=== PATIENT | female | born 1980 | race Caucasian/White ===

== ENCOUNTER 2020-09-19 14:47 | Outpatient (RCR) | payer BC, SELFPAY ==
[2020-09-19] MEDS: COVID-19 VACC, MRNA(PFIZER)/PF 30 MCG/0.3 ML SYRINGE IM (15:56)
[2020-10-10] MEDS: COVID-19 VACC, MRNA(PFIZER)/PF 30 MCG/0.3 ML SYRINGE IM (15:31)
== END 2020-09-19 23:59 ==
LOC: IMMUN 14:47
PROVIDERS: PCP Family Medicine; Visit Provider Family Medicine
DX: Z23 Encounter for immunization (principal)
CPT/HCPCS: 0001A; 0002A; 91300

== ENCOUNTER 2022-03-27 02:08 | Emergency (ER) | payer OTHER, SELFPAY ==
[2022-03-27 02:09] VITALS: BP 196/104; PULSE 71; RESP 16; TEMP 36.1; O2SAT 97; BMI 53.3
[2022-03-27] MEDS: Penicillin Vk 250 MG Tablet 500 MG PO (02:47)
[2022-03-27] MEDS: Bupivacaine Mpf 0.5% 30 ML VIAL INFILT (03:02)
--- NOTE | 2022-03-27 03:03 | EDS_ITS ---
HPI History of Present Illness Chief Complaint: Dental Narrative Narrative: Patient is a 41-year-old female with past medical history of anxiety and kidney stones. She states a few months ago she had have a crown placed on top of the tooth. She states in the past 2 to 3 days has been having increasing throbbing left upper dental pain but no trauma. She denies any fevers chills difficulty breathing or swallowing. However she states that as time has progressed is the pain and is not responding to [id number] medications and therefore she comes in for evaluation [facility] Medical History (Updated 03/27/22 @ 03:[address] Ronald Gallardo, DO) Anxiety Kidney stones Home Medications fluoxetine 20 mg capsule 20 mg PO DAILY 03/27/22 [History Last Taken Unknown] levothyroxine 200 mcg tablet 200 mcg PO DAILY 03/27/22 [History Last Taken Unknown] oxycodone-acetaminophen 5 mg-325 mg tablet (Percocet) 1 tab PO Q6H PRN pain 3 days #12 tabs 03/27/22 [Rx Last Taken Unknown] penicillin V potassium 500 mg tablet 500 mg PO 4X/DAY #40 tabs 03/27/22 [Rx Last Taken Unknown] Allergy/AdvReac Type Severity Reaction Status Date / Time No Known Allergies Allergy Verified 03/27/22 02:50 Surgical History (Updated 03/27/22 @ 02:15 by Edilma Fisher) H/O thyroidectomy Social History Smoking Status: Never smoker [facility] ED Constitutional Constitutional ED: Denies chills or fever(s) ENT ENT ED: Reports other Details: Positive dental pain ; Denies sore throat Cardiovascular Cardiovascular: Denies chest pain Respiratory/Chest Respiratory/Chest: Denies cough or dyspnea Gastrointestinal Gastrointestinal: Denies abdominal pain, diarrhea, nausea or vomiting Genitourinary Genitourinary ED: Denies dysuria Musculoskeletal Musculoskeletal: Denies myalgias or neck pain Integumentary Denies rash Neurologic Neurologic: Denies headache(s) Hematologic/Lymphatic Hematologic/Lymphatic: Denies easy bleeding or easy bruising EXAM Physical Exam Const Vital Signs: 03/27/22 02:09 03/27/22 03:09 Temperature 96.9 F L Temperature Source Temporal Pulse Rate 71 79 Respiratory Rate 16 18 Blood Pressure 196/104 H 171/64 H Blood Pressure Mean 134 Pulse Ox 97 97 Oxygen Delivery Method Room Air Positive well nourished, well developed and obese General Appearance ED: well developed Nutritional Appearance: obese HEENT Reports moist mucous membranes HEENT Narrative: Patient has dental caries with inflammation of the gingiva of the left upper jaw without obvious dental abscess airway edema or compromise noted Eyes PERRL and EOMs intact bilaterally Neck supple Neck Narrative: No brawny edema in the submental space to suggest Tobias's angina Resp normal respiratory effort and clear to auscultation bilaterally Cardio regular rate and regular rhythm Extremity normal to inspection Neuro oriented x3 and CN's II-XII intact bilaterally Sensorium / Orientation: alert Psych mental status grossly normal Skin no rashes or lesions noted MDM MDM MDM Narrative Medical decision making narrative: Patient presented to the ER hypertensive but was in pain so this was expected. She did not have signs of airway compromise or respiratory distress or physical exam findings to suggest Tobias's angina. Therefore I felt no need for imaging or laboratory studies. With the irritation along the patient's left upper gingiva and increasing throbbing pain she most likely has an underlying dental infection. Therefore she will be started on antibiotics but without signs of systemic infection or airway compromise or ANUG there is no need for further work-up and she is safe for discharge. Patient was given a left superior alveolar dental block using 1.5 mL of 0.5% Marcaine and 1.5 mL of 2% lidocaine with epinephrine. Patient achieved good anesthesia with the injection and tolerated the procedure well without complication. Discharge Plan Triage Chief Complaint: Dental ED Provider: Ronald Gallardo Dx/Rx/DC Orders Clinical Impression: Dental infection, Pain, dental Instructions: Dental Abscess, ED Dental Pain Prescriptions: New penicillin V potassium 500 mg tablet 500 mg PO 4X/DAY Qty: 40 0RF oxycodone-acetaminophen [Percocet] 5-325 mg tablet 1 tab PO Q6H PRN (Reason: pain) 3 Days Qty: 12 0RF No Action levothyroxine 200 mcg tablet 200 mcg PO DAILY Label Comments: TAKE 1 TABLET BY MOUTH ONCE DAILY 5 DAYS A WEEK AND 1.5 ( ONE AND ONE-HALF) T ABLETS 2 DAYS A WEEK. fluoxetine 20 mg capsule 20 mg PO DAILY Label Comments: TAKE 1 CAPSULE BY MOUTH ONCE DAILY Primary Care Provider: James Sanchez Referrals: James Sanchez MD [Primary Care Provider] - Activity Restrictions/Additional Instructions: Please follow-up with your dentist for further evaluation and take your antibiotic as directed. Please return to the ER should you have any further concerns Disposition Disposition: Home, Self Care Discharge Date/Time: 03/27/22 03:10
[2022-03-27 03:09] VITALS: BP 171/64; PULSE 79; RESP 18; O2SAT 97
== END 2022-03-27 03:10 | disposition home or self-care (01) ==
PROVIDERS: Emergency Provider Emergency Medicine; PCP Family Medicine; Visit Provider Emergency Medicine
DX: K04.7 Periapical abscess without sinus (principal); F41.9 Anxiety disorder, unspecified
CPT/HCPCS: 99282

== ENCOUNTER 2022-05-04 17:28 | Emergency (ER) | payer OTHER, SELFPAY ==
[2022-05-04] VITALS (8 sets, daily range): BP systolic 140–181; BP diastolic 82–108; PULSE 64–79; RESP 12–18; TEMP 36.3; O2SAT 96–100; BMI 53.1
--- NOTE | 2022-05-04 17:37 | NURSING ---
NO OLD EKGS
--- NOTE | 2022-05-04 17:51 | ED.VIS.CHEST ---
HPI History of Present Illness Chief Complaint: Chest Pain Informant: patient Narrative Narrative: Patient complains of right-sided chest pain. Patient states that she has had an extremely stressful day. She has a history of anxiety and panic attacks. She thinks she may have had a panic attack. She states she has broken down and cried 3 times today. At the end of the day she then got some pain in her right chest. It localizes with 1 finger. It radiated up near the AC joint on the right. It still there a little bit. It is a little sore if she moves but not with pressing. She was never actually short of breath with this. No coughing. Last travel was back in November. No leg pain or swelling. No personal history of DVT or PE. Her mom may have had some blood clots after episodes of hip surgery and congestive heart failure with hospital admission. But she is not exactly sure what medication she is on. There is no family history of heart disease in a first-degree relative. She is not a smoker. No blood pressure or diabetes. PFSH PFSH Medical History Anxiety Kidney stones Non-smoker Home Medications fluoxetine 20 mg capsule 20 mg PO DAILY 03/27/22 [History Last Taken Unknown] levothyroxine 200 mcg tablet 200 mcg PO DAILY 03/27/22 [History Last Taken Unknown] lorazepam 0.5 mg tablet 0.5 mg PO QHS 05/04/22 [History Last Taken Unknown] Allergy/AdvReac Type Severity Reaction Status Date / Time No Known Allergies Allergy Verified 05/04/22 17:29 Surgical History H/O thyroidectomy Social History Smoking Status: Never smoker ROS ROS ED Constitutional Constitutional ED: Denies chills or fever(s) Eyes Eyes: Denies change in vision ENT ENT ED: Denies rhinorrhea or sore throat Cardiovascular Cardiovascular: Reports as per HPI and chest pain Respiratory/Chest Respiratory/Chest: Denies cough or dyspnea Gastrointestinal Gastrointestinal: Denies nausea or vomiting Genitourinary Genitourinary ED: Denies dysuria Musculoskeletal Musculoskeletal: Denies neck pain Psychiatric Psychiatric: Reports anxiety Endocrine Endocrinology: Denies polydipsia or polyuria Hematologic/Lymphatic Hematologic/Lymphatic: Denies easy bleeding or easy bruising Allergic/Immunologic Allergic/Immunologic ED: Denies urticaria EXAM Physical Exam Const Vital Signs: 05/04/22 17:30 05/04/22 17:35 05/04/22 17:37 Temperature 97.3 F L Temperature Source Temporal Pulse Rate 79 76 Respiratory Rate 18 13 Respiratory Effort Normal Blood Pressure 181/108 H Blood Pressure Mean 132 Pulse Ox 96 96 Oxygen Delivery Method Room Air Room Air 05/04/22 17:53 05/04/22 18:46 05/04/22 19:15 Temperature Temperature Source Pulse Rate 72 64 Respiratory Rate 12 14 Respiratory Effort Blood Pressure 152/97 H 140/91 H Blood Pressure Mean 115 107 Pulse Ox 98 97 97 Oxygen Delivery Method Room Air Room Air Room Air 05/04/22 20:05 05/04/22 21:15 Temperature Temperature Source Pulse Rate 65 69 Respiratory Rate 14 14 Respiratory Effort Blood Pressure 166/82 H 163/88 H Blood Pressure Mean 110 113 Pulse Ox 100 98 Oxygen Delivery Method Room Air Room Air Positive well nourished General Appearance ED: NAD HEENT Reports moist mucous membranes atraumatic Eyes General Eye ED: Negative for scleral icterus Neck supple and no JVD Chest Wall inspection of chest normal Chest Narrative: No skin changes. Minimal chest tenderness but does not fully reproduce symptoms Resp normal respiratory effort and clear to auscultation bilaterally Resp Narrative: Patient can take good deep breaths without any discomfort. No pleuritic component. Lungs are clear bilaterally Auscultation: Negative for rales, rhonchi or wheezes Cardio regular rate, regular rhythm and no murmurs Rhythm: Negative for abnormal rhythm Peripheral Pulses: pulses 2+ throughout GI normal to inspection, nondistended, normoactive bowel sounds and soft to palpation Back/Spine no CVA tenderness Extremity normal to inspection Extremity Narrative: No swelling noted. No edema. No asymmetry. No tenderness along the deep venous system. No distended veins Neuro Sensorium / Orientation: awake and alert Psych mental status grossly normal Skin no rashes or lesions noted MDM MDM MDM Narrative Medical decision making narrative: On andBlood work showed normal CBC electrolytes troponin. TSH was elevated. This needs to be followed up as an outpatient. I do not think this is the cause of her symptoms. Patient is feeling better. Her heart rate remains normal. Blood pressure is down. Saturations are normal. Lab Data Attestation: I reviewed the patient's lab results. Labs: Laboratory Results - last 24 hr 05/04/22 05/04/22 05/04/22 17:40 17:40 20:00 WBC 10.5 RBC 4.31 Hgb 12.8 Hct 37.1 MCV 86.1 MCH 29.7 MCHC 34.5 RDW Std Deviation 41.6 RDW Coeff of Madeline 13.2 Plt Count 374 MPV 10.2 Immature Gran % (Auto) 0.700 Neut % (Auto) 67.2 Lymph % (Auto) 22.6 [place] % (Auto) 6.4 Eos % (Auto) 2.3 Baso % (Auto) 0.8 Absolute Neuts (auto) 7.1 Absolute Lymphs (auto) 2.37 Nucleated RBC % 0 Sodium 137 Potassium 3.6 Chloride 106 Carbon Dioxide 25.0 Anion Gap 6 BUN 13 Creatinine 0.95 Estim Creat Clear Calc 77.82 Est GFR (MDRD) Af Amer 83 Est GFR (MDRD) Non-Af 68 BUN/Creatinine Ratio 13.7 Glucose 86 Calcium 8.4 L Troponin I High Sens 4 4 TSH 23.50 H Radiography Diagnostic Testing: Clinical Impression(s) from Imaging Studies Chest X-Ray 05/04/22 18:00 IMPRESSION: No radiographic evidence of acute cardiopulmonary disease. Electronically Signed: Torin Lerner DO at 18:19 EDT Reading Location ID and State: [address] [place] [address] Tel [phone], Service support , Chest x-ray shows no acute process per EKG Initial EKG: Comments: EKG done for chest pain read by me shows normal sinus rhythm with overall rate of 71. No ventricular ectopy. Mild baseline variation. No acute ST elevation or depression. NC interval, QRS duration and QTc are normal. EKG was done while the patient was having symptoms Discharge Plan Triage Chief Complaint: Chest Pain ED Provider: Jeff Davidson Dx/Rx/DC Orders Clinical Impression: Chest pain, Anxiety Instructions: ED Anxiety Reaction, ED Chest Pain, Uncertain Cause Prescriptions: No Action levothyroxine 200 mcg tablet 200 mcg PO DAILY Label Comments: TAKE 1 TABLET BY MOUTH ONCE DAILY 5 DAYS A WEEK AND 1.5 ( ONE AND ONE-HALF) TABLETS 2 DAYS A WEEK. fluoxetine 20 mg capsule 20 mg PO DAILY Label Comments: TAKE 1 CAPSULE BY MOUTH ONCE DAILY lorazepam 0.5 mg tablet 0.5 mg PO QHS Primary Care Provider: Bety Betancourt NP Referrals: Bety Betancourt NP, PATHOLOGIST ASSISTANT-C [Primary Care Provider] - 3-5 Days Disposition Disposition: Home, Self Care
[2022-05-04] MEDS: Aspirin 81 MG TAB.CHEW 324 MG PO (17:59)
[2022-05-04 18:00] LABS: Absolute Lymphocyte Count 2.37 X10^3/uL (0.83-4.51); Absolute Neutrophil Count 7.1 X10^3/uL (2.0-7.7); Basophil# 0.08 X10^3/uL; Basophil% 0.8 % (0-1); Eosinophil# 0.24 X10^3/uL; Eosinophils% 2.3 % (0-5); Hematocrit 37.1 % (37-47); Hemoglobin 12.8 g/dL (12.0-15.0); Lymphocyte # 2.37 X10^3/ul (0.83-4.51); Lymphocyte % 22.6 % (19-41); Mean Corp Hgb Conc 34.5 g/dL (32-36); Mean Corpuscular Hgb 29.7 pg (27.0-32.0); Mean Corpuscular Volume 86.1 fL (81-99); Mean Platelet Vol. 10.2 fl (6.2-12.0); Monocyte# 0.67 X10^3/uL; Monocyte% 6.4 % (0-10); NRBC Flagged by Analyzer 0 % (0-5); Neutrophil # 7.05 X10^3/uL (2.7-7.7); Neutrophil % 67.2 % (47-70); Platelet Count 374 K/mm3 (150-450); RBC Distribution Width CV 13.2 % (11.6-14.6); RBC Distribution Width SD 41.6 fl (35.1-43.9); Red Blood Count 4.31 M/mm3 (4.2-5.4); White Blood Count 10.5 K/mm3 (4.4-11.0)
--- NOTE | 2022-05-04 18:00 | RAD_ITS ---
INDICATION: Sharp right-sided chest pain radiating into the right shoulder for 45 minutes. Intermittent episodes of dizziness. EXAMINATION/TECHNIQUE: X-RAY - XR Chest 1 View COMPARISON: None. FINDINGS: LINES/DEVICES: None. LUNGS: No consolidation, edema or effusion. No pneumothorax. MEDIASTINUM AND CARDIOVASCULAR STRUCTURES: Cardiac silhouette not enlarged. Central airways and mediastinal contour are unremarkable. BONES AND SOFT TISSUES: Unremarkable. RAD/Chest 1 View (Portable) IMPRESSION: No radiographic evidence of acute cardiopulmonary disease. Electronically Signed: Torin Lerner DO at 18:19 EDT ,
[2022-05-04 18:25] LABS: Anion Gap 6 (5-15); BUN 13 mg/dL (7-18); BUN/Creat Ratio 13.7 RATIO (10-20); Calcium,Total 8.4 mg/dL (8.5-10.1); Chloride 106 mmol/L (98-107); Creatinine, Serum 0.95 mg/dL (0.55-1.02); EST Glomerular Filtration Rate 68 mL/min (>60); Est Glom Filt Rate - Afr Amer 83 mL/min (>60); Estimated Creatinine Clearance 77.82 ml/min; Glucose 86 mg/dL (74-106); Potassium 3.6 mmol/L (3.5-5.1); Sodium Level 137 mmol/L (136-145); Troponin-I HS (w/2H Reflex) 4 pg/mL (3.0-54.0)
[2022-05-04 19:56] LABS: Reflex Troponin-HS? (from REC) Y
[2022-05-04 20:28] LABS: Troponin-I HS 4 pg/mL (3.0-54.0)
== END 2022-05-04 21:49 | disposition home or self-care (01) ==
PROVIDERS: Emergency Provider Emergency Medicine; PCP Nurse Practitioner Family; Visit Provider Emergency Medicine
DX: R07.9 Chest pain, unspecified (principal); F41.9 Anxiety disorder, unspecified; Z87.442 Personal history of urinary calculi
CPT/HCPCS: 36415; 71045; 80048; 84443; 84484; 85025; 93005; 99285; A4216

== ENCOUNTER 2022-06-19 22:42 | Emergency (ER) | payer OTHER, SELFPAY ==
[2022-06-19 22:43] VITALS: BP 193/102; PULSE 66; RESP 16; TEMP 35.7; O2SAT 99; BMI 50.4
[2022-06-19 22:46] VITALS: BP 193/102; PULSE 66; RESP 16; TEMP 35.7; O2SAT 99
--- NOTE | 2022-06-19 23:39 | EX.ED.DYSGE1 ---
HPI History of Present Illness Chief Complaint: Dental Narrative Narrative: 41-year-old female presenting with left sided dental pain. Patient states her entire left side of her face has been hurting. This began this afternoon. History of previous root canal on left upper molar. No fever. She has tried Advil, Tylenol, ibuprofen at home. Prior similar symptoms: Yes Recent Illness/Hospitalization: No PFSH PFSH Medical History Anxiety Kidney stones Non-smoker Home Medications fluoxetine 20 mg capsule 20 mg PO DAILY 03/27/22 [History Last Taken Unknown] levothyroxine 200 mcg tablet 200 mcg PO DAILY 03/27/22 [History Last Taken Unknown] lorazepam 0.5 mg tablet 0.5 mg PO QHS 05/04/22 [History Last Taken Unknown] oxycodone-acetaminophen 5 mg-325 mg tablet 1 tab PO Q6H PRN PRN Pain 2 days #8 TABLETS 06/19/22 [Rx Last Taken Unknown] penicillin V potassium 500 mg tablet 500 mg PO 4X/DAY #40 tabs 06/19/22 [Rx Last Taken Unknown] Allergy/AdvReac Type Severity Reaction Status Date / Time No Known Allergies Allergy Verified 05/04/22 17:29 Surgical History H/O thyroidectomy Social History Smoking Status: Never smoker ROS ROS ED Constitutional Constitutional ED: Denies fever(s) Eyes Eyes: Denies change in vision ENT ENT ED: Reports other Details: dental pain ; Denies rhinorrhea or sore throat Cardiovascular Cardiovascular: Denies chest pain Respiratory/Chest Respiratory/Chest: Denies cough or dyspnea Gastrointestinal Gastrointestinal: Denies nausea or vomiting Musculoskeletal Musculoskeletal: Denies myalgias Integumentary Denies rash Neurologic Neurologic: Denies headache(s) EXAM Physical Exam Const Vital Signs: 06/19/22 22:43 06/19/22 22:46 Temperature 96.3 F L 96.3 F L Temperature Source Temporal Temporal Pulse Rate 66 66 Respiratory Rate 16 16 Blood Pressure 193/102 H 193/102 H Blood Pressure Mean 132 132 Pulse Ox 99 99 Oxygen Delivery Method Room Air Room Air Positive well nourished and well developed General Appearance ED: well developed HEENT Reports normocephalic and head/scalp atraumatic HEENT Narrative: left upper molar tenderness, no surrounding fluctuance. No sublingual edema. Eyes PERRL and EOMs intact bilaterally Neck supple General: Negative for tenderness Resp normal respiratory effort and clear to auscultation bilaterally Cardio regular rate and regular rhythm Extremity normal to inspection Neuro oriented x3 Sensorium / Orientation: alert Psych mental status grossly normal MDM MDM MDM Narrative Medical decision making narrative: Patient was given penicillin and short course of Percocet. She will follow-up with her dentist. Advised signs and symptoms for which to return to the ED. Discharge Plan Triage Chief Complaint: Dental ED Provider: Riana Mederos Dx/Rx/DC Orders Clinical Impression: Odontalgia Instructions: ED Dental Pain Prescriptions: New penicillin V potassium 500 mg tablet 500 mg PO 4X/DAY Qty: 40 0RF oxycodone-acetaminophen 5-325 mg tablet 1 tab PO Q6H PRN PRN (Reason: Pain) 2 Days Qty: 8 0RF No Action levothyroxine 200 mcg tablet 200 mcg PO DAILY Label Comments: TAKE 1 TABLET BY MOUTH ONCE DAILY 5 DAYS A WEEK AND 1.5 ( ONE AND ONE-HALF) TABLETS 2 DAYS A WEEK. fluoxetine 20 mg capsule 20 mg PO DAILY Label Comments: TAKE 1 CAPSULE BY MOUTH ONCE DAILY lorazepam 0.5 mg tablet 0.5 mg PO QHS Primary Care Provider: eBty Betancourt NP Referrals: Bety Betancourt NP, CARDIOTHORACIC SURGEON-C [Primary Care Provider] - Disposition Disposition: Home, Self Care
[2022-06-19] MEDS: Penicillin Vk 250 MG Tablet 500 MG PO (23:40)
[2022-06-19] MEDS: oxyCODONE 5 MG Tablet PO (23:40)
== END 2022-06-19 23:48 | disposition home or self-care (01) ==
PROVIDERS: Emergency Provider Emergency Medicine; PCP Nurse Practitioner Family; Visit Provider Emergency Medicine
DX: K08.89 Other specified disorders of teeth and supporting structures (principal)
CPT/HCPCS: 99283

== ENCOUNTER 2024-02-05 21:14 | Emergency (ER) | payer OTHER, SELFPAY ==
[2024-02-05 21:15] VITALS: BP 177/95; PULSE 82; RESP 16; TEMP 36; O2SAT 97; BMI 53.7
[2024-02-05] MEDS: Ibuprofen 600 MG Tablet PO (22:13)
--- NOTE | 2024-02-05 22:13 | RAD_ITS ---
INDICATION: pain 2nd MTPJ EXAMINATION/TECHNIQUE: X-RAY - RIGHT XR Foot Min 3 Views 3 VIEWS COMPARISON: FINDINGS: SOFT TISSUES: No soft tissue swelling or gas. No radiopaque foreign body. BONES/JOINTS: No acute fracture or subluxation.. Normal alignment. Calcaneal spurring. Preservation of the joint space.. No sclerotic or destructive changes observed. RAD/Foot min 3 Views IMPRESSION: No acute bony injury. Electronically Signed: Jose De Jesus Vu DO at 22:40 EDT ,
--- NOTE | 2024-02-05 23:12 | EDS_ITS ---
HPI History of Present Illness Chief Complaint: Lower Extremity Injury Informant: patient and spouse/S.O. Narrative Narrative: 43-year-old healthy female has had 1-2 days of gradual onset pain and swelling in her right foot. Is basically at the base of the second toe and nowhere else. She denies any fevers or chills or systemic symptoms in this period of time. She denies any injury. When asked if she could have stepped on a foreign body or a splinter, she states nothing that she can recall. She has never had this happen before. She has no known history of gout. It hurts worse to walk because of bending her toes. [facility] Medical History Non-smoker Anxiety Kidney stones Home Medications ?Medication ?Instructions ?Recorded ?Last Taken ?Type fluoxetine 20 mg capsule 20 mg PO DAILY 03/27/22 Unknown History levothyroxine 200 mcg tablet 200 mcg PO DAILY 03/27/22 Unknown History lorazepam 0.5 mg tablet 0.5 mg PO QHS 05/04/22 Unknown History cephalexin 500 mg capsule 500 mg PO Q6 #40 CAPSULES 02/05/24 Unknown Rx Allergy/AdvReac Type Severity Reaction Status Date / Time No Known Allergies Allergy Verified 02/05/24 21:15 Surgical History H/O thyroidectomy Social History Smoking Status: Never smoker ROS ROS ED Constitutional Constitutional ED: Denies chills or fever(s) Musculoskeletal Musculoskeletal: Reports extremity pain; Denies neck pain Integumentary Denies Abrasions, rash or wounds Neurologic Neurologic: Denies paresthesias or weakness EXAM Physical Exam Const Vital Signs: 02/05/24 21:15 Temperature 96.8 F L Temperature Source Temporal Pulse Rate 82 Respiratory Rate 16 Blood Pressure 177/95 H Blood Pressure Mean 122 Pulse Ox 97 Oxygen Delivery Method Room Air Positive well nourished and well developed General Appearance ED: well developed and NAD Neck full ROM and supple Back/Spine normal ROM and normal to inspection Extremity Extremity Narrative: Right foot: Basically there is some mild swelling and tenderness to the second MTPJ. There is no erythema. It is a fairly small focal area. It seems a little more swollen to the peroneal aspect of the base of the toe than anywhere else. There is no focal skin lesion, erythema, lymphangitis, or anywhere else that is tender including the nearby MTPJ's and the rest of the affected second toe. Moving the toe passively increases her pain. She has no pain with moving the other toes. Neuro oriented x3, no focal motor deficits and no sensory deficits noted Sensorium / Orientation: alert Psych mental status grossly normal and thought process normal Skin no wounds Skin Narrative: No erythema. No abscess/fluctuance. No obvious nidus for infection right foot. Rashes: no rashes MDM MDM MDM Narrative Medical decision making narrative: Three-view x-ray series of the right foot shows no acute bony fracture on my interpretation, although interestingly, she does have a small calcification that is smooth-walled in the area of interest. Radiology did not call anything in particular about this. It is unknown if this is incidental, or related. It does not appear to be a foreign body, has the same density as bone. I do not think any labs is going to be helpful here she has no systemic symptoms or fevers, she does not have any symptoms in her groin to suggest lymphadenopathy and she has no outward signs of infection, although we discussed the possibility of a septic arthritis and we considered performing an arthrocentesis, at this time I do not think that is going to be necessary because I would just prescribe her some antibiotics in case this is some type of infection anyway. She is comfortable with that plan, I advised follow-up closely with podiatry as needed, prescribed her Keflex and start her on that and gave her a postop shoe for comfort and she is agreeable to the plan. Radiography Diagnostic Testing: Clinical Impression(s) from Imaging Studies Foot X-Ray 02/05/24 22:13 IMPRESSION: No acute bony injury. Electronically Signed: Jose De Jesus Vu DO at 22:40 EDT Reading Location ID and State: [facility] / [place] Tel [phone], Service support , Discharge Plan Triage Chief Complaint: Lower Extremity Injury ED Provider: Arya Turner Dx/Rx/DC Orders Clinical Impression: Acute pain of right foot Instructions: Cellulitis Dc Prescriptions: New cephalexin 500 mg capsule 500 mg PO Q6 Qty: 40 0RF No Action levothyroxine 200 mcg tablet 200 mcg PO DAILY Patient Comments: TAKE 1 TABLET BY MOUTH ONCE DAILY 5 DAYS A WEEK AND 1.5 ( ONE AND ONE-HALF) TABLETS 2 DAYS A WEEK. fluoxetine 20 mg capsule 20 mg PO DAILY Patient Comments: TAKE 1 CAPSULE BY MOUTH ONCE DAILY lorazepam 0.5 mg tablet 0.5 mg PO QHS Primary Care Provider: Bety Betancourt NP Referrals: Vinny Ferrer DPM [Med Staff - Active Staff] - 3-5 Days if not improving Bety Betancourt NP, CORRIDOR REDEVELOPMENT MANAGER-C [Primary Care Provider] - Print Language: Frisian Disposition Disposition: Home, Self Care Discharge Date/Time: 02/05/24 23:20
[2024-02-05] MEDS: Cephalexin 250 MG Capsule 500 MG PO (23:20)
== END 2024-02-05 23:20 | disposition home or self-care (01) ==
PROVIDERS: Emergency Provider Emergency Medicine; PCP Nurse Practitioner Family; Visit Provider Emergency Medicine
DX: M79.671 Pain in right foot (principal); M79.89 Other specified soft tissue disorders; E89.0 Postprocedural hypothyroidism; Z79.890 Hormone replacement therapy; Z79.899 Other long term (current) drug therapy
CPT/HCPCS: 73630; 99283

== ENCOUNTER 2024-02-25 15:41 | Emergency (ER) | payer OTHER, SELFPAY ==
[2024-02-25 15:41] VITALS: BP 176/93; PULSE 85; RESP 18; TEMP 36.6; O2SAT 95
--- NOTE | 2024-02-25 15:43 | EDS_ITS ---
HPI History of Present Illness Chief Complaint: Laceration [facility] Medical History Non-smoker Anxiety Kidney stones Home Medications ?Medication ?Instructions ?Recorded ?Last Taken ?Type fluoxetine 20 mg capsule 20 mg PO DAILY 03/27/22 Unknown History levothyroxine 200 mcg tablet 200 mcg PO DAILY 03/27/22 Unknown History lorazepam 0.5 mg tablet 0.5 mg PO QHS 05/04/22 Unknown History cephalexin 500 mg capsule 500 mg PO Q6 #40 CAPSULES 02/05/24 Unknown Rx cephalexin 500 mg capsule 500 mg PO TID 3 days #9 caps 02/25/24 Unknown Rx Allergy/AdvReac Type Severity Reaction Status Date / Time No Known Allergies Allergy Verified 02/25/24 15:41 Surgical History H/O thyroidectomy Social History Smoking Status: Never smoker EXAM Physical Exam Const Vital Signs: 02/25/24 15:41 02/25/24 16:35 Temperature 98 F 98.0 F Temperature Source Temporal Pulse Rate 85 75 Respiratory Rate 18 18 Blood Pressure 176/93 H 138/69 H Blood Pressure Mean 120 92 Pulse Ox 95 100 Oxygen Delivery Method Room Air [facility] MDM Narrative Medical decision making narrative: HISTORY OF PRESENT ILLNESS: 43-year-old female presents with laceration to the right third finger. She notes this occurred [employer] she was cutting foodstuffs. Unknown last tetanus. REVIEW OF SYSTEMS: Pertinent positives: finger laceration Pertinent negatives: Numbness, tingling, loss of movement or sensation PHYSICAL EXAM: Nursing triage notes reviewed, Vital signs reviewed Constitutional: please see mdm Extremities: No edema, intact flexor tendon function in flexor digitorum profundus and superficialis tendons Neuro: Intact 5/5 strength with ok sign (median), intact finger abduction (ulnar) intact wrist extension (radial n). Intact sensation in the radial, ulnar, and median nerve distributions. Skin: Avulsion injury to the tip of the third digit, no nail involvement, no foreign bodies noted, no active bleeding, no tenderness involvement. MEDICAL DECISION MAKING: Chief Complaint: Laceration External records reviewed: No documented tetanus immunization noted in [facility] Factors affecting care: Hypothyroidism MDM Narrative: The patient was initially hypertensive with a blood pressure 176/93 otherwise afebrile, nontoxic-appearing. Exam I considered the following differential diagnosis: laceration The patient suffered abrasion injury to the right third digit On exam there was no evidence of foreign bodies. There was no evidence of neurovascular injury. Patient had a normal distal vascular exam, and had intact ROM and sensation. There was also no evidence of tendon injury, with normal distal full range of motion, flexion, extension, abduction, abduction. There is no evidence of local joint space involvement at this time. Wound care applied (irrigation and/or local cleansing solution). Laceration repair was then performed please see procedure note. The patient was given signs and symptoms warnings for infection, such as increasing pain, redness, swelling, associated heat, pus or fever. Patient was given instructions for timely follow-up for removal. Patient agreed with the plan of care Procedure: Laceration repair. The procedure was performed by myself. Indication: Wound repair Risks and benefits: risks, benefits and alternatives were discussed Consent: Consent was obtained. Wound Details: wound was 3 mm in length, 1 mm in depth, it was more of an avulsion than a laceration. Foreign bodies, deep structure involvement) Anesthesia: None (verbal consent obtained from patient). Wound prep: Patient was prepped and draped in the usual sterile fashion. Tetanus: Updated today Irrigation Solution: Saline Wound Preparation: Use chlorhexidine The wound was explored to its base in a bloodless field. Procedure Description: Covered with Dermabond Patient tolerated the procedure well with no immediate complications The patient and/or family, caregivers express understanding. The patient and/or family, caregivers agrees with the plan. Shared decision making: I will have a discussion with the patient and or visitors regarding risk/benefits of further testing or admission. They will be made aware of of the risk/benefits inherent in this decision they will be given the opportunity to voice understanding. Total critical care time today provided was at least 0 minutes. This excludes separately billable procedures. Critical care time (if documented) is secondary to the patient having high probability of clinically significant/life threatening deterioration in the patient's condition which required my urgent intervention. Impression: 1. Finger avulsion 2. Finger pain 3. Encounter for tetanus immunization Dispo: Discharge home This note was generated with [employer] software. It may contain incorrect words, spelling, and punctuation that were not noted in review of the chart prior to signing. Discharge Plan Triage Chief Complaint: Laceration ED Provider: Giovani Rowell Dx/Rx/DC Orders Instructions: ED Laceration, Extremity: Skin Glue Prescriptions: New cephalexin 500 mg capsule 500 mg PO TID 3 Days Qty: 9 0RF No Action levothyroxine 200 mcg tablet 200 mcg PO DAILY Patient Comments: TAKE 1 TABLET BY MOUTH ONCE DAILY 5 DAYS A WEEK AND 1.5 ( ONE AND ONE-HALF) TABLETS 2 DAYS A WEEK. fluoxetine 20 mg capsule 20 mg PO DAILY Patient Comments: TAKE 1 CAPSULE BY MOUTH ONCE DAILY lorazepam 0.5 mg tablet 0.5 mg PO QHS cephalexin 500 mg capsule 500 mg PO Q6 Qty: 40 0RF Primary Care Provider: Bety Betancourt NP Referrals: Bety Betancourt NP, HEALTH PROMOTION COORDINATOR-C [Primary Care Provider] - Activity Restrictions/Additional Instructions: Thank you for trusting us with your care today! Please take Tylenol (2 pills, 650 mg), ibuprofen (2 pills, 400 mg) every 6 hours as needed for pain and fever control. Please take antibiotics as prescribed and until course complete. Please return to the emergency department if your symptoms change or worsen. Specific if you notice redness, white-yellow discharge, increasing pain, fevers or warmth disease or signs of infection. Please follow with your primary care physician for further outpatient evaluation and management. Print Language: Egyptian Disposition Disposition: Home, Self Care Discharge Date/Time: 02/25/24 16:38
[2024-02-25] MEDS: Cephalexin 250 MG Capsule 500 MG PO (16:16)
[2024-02-25] MEDS: Diphth,Pertuss(Acell),Tet Vac 0.5 ML Vial IM (16:17)
[2024-02-25 16:35] VITALS: BP 138/69; PULSE 75; RESP 18; TEMP 36.7; O2SAT 100
== END 2024-02-25 16:38 | disposition home or self-care (01) ==
LOC: ED 16:14
PROVIDERS: Emergency Provider Emergency Medicine; PCP Nurse Practitioner Family; Visit Provider Emergency Medicine
DX: S61.213A Laceration without foreign body of left middle finger without damage to nail, initial encounter (principal); W26.0XXA Contact with knife, initial encounter; F41.9 Anxiety disorder, unspecified; Z79.899 Other long term (current) drug therapy; Z23 Encounter for immunization
CPT/HCPCS: 12001; 90715; 99282

== ENCOUNTER 2024-07-15 22:18 | Emergency (ER) | payer OTHER, SELFPAY ==
[2024-07-15 22:18] VITALS: BP 179/87; PULSE 70; RESP 18; TEMP 36.1; O2SAT 99; BMI 53.6
--- NOTE | 2024-07-15 22:42 | EDS_ITS ---
HPI History of Present Illness HPI Narrative: Patient presents with injury to her right little finger and hand. Patient states she slipped and fell and landed on her right hand today. Patient states this occurred just prior to arrival. Patient describes her pain as stabbing and throbbing. Patient states it is better when she elevates it above her head. Patient admits to some tingling but denies any weakness. Patient denies any head injury or loss of consciousness. Patient denies any other injuries. Chief Complaint: Upper Extremity Injury Informant: patient Occured/Mechanism Mechanism/Context: Yes fall Onset/Context/Timing Onset: Today Context: Sudden Onset Timing: Continuous Quality of Pain: Stabbing and Throbbing Location: Right fifth finger Worsened by: Movement, palpation Relieved by: Elevation Associated Symptoms Associated Symptoms: Positive for Parasthesia; Negative for Weakness or Loss of Funtion [facility] Medical History Non-smoker Anxiety Kidney stones Home Medications ?Medication ?Instructions ?Recorded ?Last Taken ?Type fluoxetine 20 mg capsule 20 mg PO DAILY 03/27/22 Unknown History levothyroxine 200 mcg tablet 200 mcg PO DAILY 03/27/22 Unknown History lorazepam 0.5 mg tablet 0.5 mg PO QHS 05/04/22 Unknown History cephalexin 500 mg capsule 500 mg PO Q6 #40 CAPSULES 02/05/24 Unknown Rx cephalexin 500 mg capsule 500 mg PO TID 3 days #9 caps 02/25/24 Unknown Rx Allergy/AdvReac Type Severity Reaction Status Date / Time No Known Allergies Allergy Verified 07/15/24 22:18 Surgical History H/O thyroidectomy Social History Smoking Status: Never smoker ROS ROS ED Constitutional Constitutional ED: Denies chills or fever(s) Eyes Eyes: Denies blurry vision or change in vision ENT ENT ED: Denies rhinorrhea or sore throat Cardiovascular Cardiovascular: Denies chest pain or palpitations Respiratory/Chest Respiratory/Chest: Denies cough or dyspnea Gastrointestinal Gastrointestinal: Denies nausea or vomiting Genitourinary Genitourinary ED: Denies dysuria or hematuria Musculoskeletal Musculoskeletal: Denies back pain or neck pain Integumentary Denies abscess or rash Neurologic Neurologic: Denies headache(s) or weakness Allergic/Immunologic Allergic/Immunologic ED: Denies mouth swelling or urticaria EXAM Physical Exam Const Vital Signs: 07/15/24 22:18 Temperature 97 F L Temperature Source Temporal Pulse Rate 70 Respiratory Rate 18 Blood Pressure 179/87 H Blood Pressure Mean 117 Pulse Ox 99 Oxygen Delivery Method Room Air Positive well nourished and well developed Constitutional Narrative: Patient has a BMI 53.6. General Appearance ED: well developed and NAD HEENT Reports moist mucous membranes Neck full ROM and supple Extremity Extremity Narrative: There is tenderness palpation over the right fifth finger, mainly over the proximal and middle phalanges. There is also some edema and ecchymosis. This extends into the MCP joint area and fourth MCP joint area. There is no deformity noted. Range of motion was limited in flexion extension of the fifth finger secondary to pain. Sensation was intact to light touch in all digits. Capillary refill was less than 2 seconds in all digits. Neuro oriented x3, CN's II-XII intact bilaterally, moves all extremities, no focal motor deficits and no sensory deficits noted Sensorium / Orientation: alert Motor Exam: strength 5/5 throughout Psych mental status grossly normal MDM MDM MDM Narrative Medical decision making narrative: Differential diagnosis includes fracture, sprain, and contusion. X-rays of the right hand will be obtained to assess for fracture. Radiography Diagnostic Testing: X-rays of the right hand were obtained. There are 3 views. On my independent interpretation, there is a nondisplaced fracture of the base of the proximal phalanx of the right fifth finger. There is no angulation. There is soft tissue swelling noted. Radiologist also interpreted the x-rays and agrees. Treatment and Re-Evaluation Narrative: Patient was advised of her findings. Patient was placed in an AlumaFoam splint. Patient's fourth and fifth fingers were gabo taped together. Patient was instructed to take Tylenol or ibuprofen as needed for pain. Patient was instructed to ice and elevate the right hand. Patient was instructed to follow- up with her primary care physician in 5 to 7 days. Patient understood and was agreeable with the plan. All questions were answered. Discharge Plan Triage Chief Complaint: Upper Extremity Injury ED Provider: Ze Adkins Dx/Rx/DC Orders Clinical Impression: Fracture of proximal phalanx of digit of right hand, Fall Instructions: ED Fracture, Finger, Closed Prescriptions: No Action levothyroxine 200 mcg tablet 200 mcg PO DAILY Patient Comments: TAKE 1 TABLET BY MOUTH ONCE DAILY 5 DAYS A WEEK AND 1.5 ( ONE AND ONE-HALF) TABLETS 2 DAYS A WEEK. fluoxetine 20 mg capsule 20 mg PO DAILY Patient Comments: TAKE 1 CAPSULE BY MOUTH ONCE DAILY lorazepam 0.5 mg tablet 0.5 mg PO QHS cephalexin 500 mg capsule 500 mg PO Q6 Qty: 40 0RF cephalexin 500 mg capsule 500 mg PO TID 3 Days Qty: 9 0RF Primary Care Provider: Bety Betancourt NP Referrals: Bety Betancourt NP, EVENT SET UP SPECIALIST-C [Primary Care Provider] - 5-7 Days Print Language: Hebrew Disposition Disposition: Home, Self Care
--- NOTE | 2024-07-15 22:50 | RAD_ITS ---
INDICATION: pain, 5th digit EXAMINATION/TECHNIQUE: X-RAY - RIGHT XR Hand Min 3 Views 3 VIEWS COMPARISON: No relevant prior comparison study available FINDINGS: SOFT TISSUES: No soft tissue swelling or gas. No radiopaque foreign body. BONES/JOINTS: There is a nondisplaced fracture at the proximal metaphysis of the fifth proximal phalanx.. Normal alignment. Preservation of the joint space.. No sclerotic or destructive changes observed. RAD/Hand Min 3 Views IMPRESSION: Nondisplaced fracture of the fifth digit proximal phalanx proximal metaphysis. Electronically Signed: Willy Farley MD at 23:52 EST ,
[2024-07-16 00:06] VITALS: BP 145/80; PULSE 76; RESP 18; TEMP 36.7; O2SAT 97
== END 2024-07-16 00:07 | disposition home or self-care (01) ==
PROVIDERS: Emergency Provider Emergency Medicine; PCP Nurse Practitioner Family; Referring Provider Emergency Medicine; Visit Provider Emergency Medicine
DX: S62.646A Nondisplaced fracture of proximal phalanx of right little finger, initial encounter for closed fracture (principal); Z87.442 Personal history of urinary calculi; W01.0XXA Fall on same level from slipping, tripping and stumbling without subsequent striking against object, initial encounter

== ENCOUNTER 2024-07-26 19:05 | Observation (INO) | payer OTHER, SELFPAY ==
[2024-07-26] VITALS (14 sets, daily range): BP systolic 132–192; BP diastolic 73–104; PULSE 53–75; RESP 10–20; TEMP 36.7–37.1; O2SAT 95–100; BMI 53.5; BMI 52.0
--- NOTE | 2024-07-26 19:14 | CT_ITS ---
We are attempting to reach an attending provider to discuss findings. An addendum with communication details will be sent when the communication is complete. STUDY: CT BRAIN WITHOUT CONTRAST REASON FOR EXAM: Female, 43 years old. dilated right pupil RADIATION DOSAGE (If Supplied By Facility): CTDIvol = ( 44.99 ) mGy, DLP = ( 829.85 ) mGycm TECHNIQUE: Transaxial CT imaging of the brain was performed without administration of intravenous contrast material. Individualized dose optimization techniques were used for this CT. COMPARISON: No relevant priors. FINDINGS: Normal soft tissue structures. Normal calvarium. Normal size ventricles and extra-axial spaces for the patient''s age. Normal white matter tracts of the cerebral hemispheres. Normal basal ganglia and thalami. There is a low-attenuation density seen within the central tanmay at the pontomesencephalic junction possibly representing ischemic changes. MRI recommended for further evaluation. Normal cerebellum. There is no intracranial hemorrhage. There are no findings of an acute ischemic infarction. Normal visualized paranasal sinuses. CT/Brain/Head without Contrast IMPRESSION: Findings suggesting possible infarct at the pontomesencephalic junction. MRI recommended for further evaluation Electronically Signed: Masood Johnson MD at 20:06 [facility] ,
--- NOTE | 2024-07-26 19:25 | EDS_ITS ---
HPI History of Present Illness Chief Complaint: Eye Problem Informant: patient and spouse/S.O. Narrative Narrative: Presents with significant other for evaluation right eye blurry vision and noted bright eyed to be dilated shortly prior to arrival. Denies headache. While in the ED started having some tingling around her right face and lips. History of anxiety and depression on medications. 3 days postop elective right cholecystectomy went home the same day she has been using Tylenol and ibuprofen. She took tramadol today. She denies any eyedrop use. However reports did put a new set of contact lens this morning out of the package. More blurry vision to the right eye, no loss of vision. On further discussion with the patient she noted blurry vision that is worsened throughout the day after placing her contacts at 10 AM. She is watching TV that things were more dry. Last eye exam May 2023. Family history of glaucoma. Prior similar symptoms: No PFSH PFSH Medical History History of nephrolithiasis Anxiety and depression Morbid obesity Non-smoker Home Medications ?Medication ?Instructions ?Recorded ?Last Taken ?Type fluoxetine 20 mg capsule 20 mg PO DAILY 03/27/22 07/26/24 History levothyroxine 200 mcg tablet 200 mcg PO DAILY 03/27/22 07/26/24 History lorazepam 0.5 mg tablet 0.5 mg PO QHS 05/04/22 07/25/24 History fluoxetine 40 mg capsule 40 mg PO DAILY 07/26/24 07/26/24 History Allergy/AdvReac Type Severity Reaction Status Date / Time No Known Allergies Allergy Verified 07/26/24 19:06 Surgical History (Updated 07/26/24 @ 22:[address] Glenda Nolan MD) History of cholecystectomy H/O thyroidectomy Social History Smoking Status: Never smoker ROS ROS ED Constitutional Constitutional ED: Denies chills, fever(s) or sweats Eyes Eyes: Reports blurry vision ENT ENT ED: Denies sore throat Cardiovascular Cardiovascular: Denies chest pain, leg edema, palpitations or racing heartbeat Respiratory/Chest Respiratory/Chest: Denies cough, dyspnea or dyspnea on exertion Gastrointestinal Gastrointestinal: Denies abdominal pain, diarrhea, nausea or vomiting Genitourinary Genitourinary ED: Denies dysuria, hematuria or urinary frequency Musculoskeletal Musculoskeletal: Denies back pain, extremity pain or neck pain Integumentary Denies rash or wounds Neurologic Neurologic: Reports paresthesias; Denies headache(s) or weakness EXAM Physical Exam Const Vital Signs: 07/26/24 19:06 Temperature 98.7 F Temperature Source Temporal Pulse Rate 70 Respiratory Rate 16 Blood Pressure 132/104 H Blood Pressure Mean 113 Pulse Ox 99 Oxygen Delivery Method Room Air Positive well nourished and well developed Constitutional Narrative: Slightly anxious, nontoxic. General Appearance ED: well developed and NAD HEENT Reports moist mucous membranes normocephalic and atraumatic Eyes Eyes Narrative: Contacts noted in both eyes. Right pupil dilated 4mm however constricts to light. No fixed position. Left eye 2 mm. Also constricts to light. Ophthalmoscope examination right eye: vessels noted with no hemorrhage seen. IOP: Keon-Pen used. 35 OD with less than 5% precision. 33 OS less than 5% position. Neck full ROM Chest Wall Chest: Negative for tenderness Resp normal respiratory effort and normal air movement Effort and Inspection: symmetric chest movement; Negative for respiratory distress Cardio regular rate, regular rhythm and no murmurs Peripheral Pulses: pulses 2+ throughout GI normal to inspection, nondistended, normoactive bowel sounds and non-tender Palpation: Negative for guarding or rebound tenderness present Extremity normal to inspection General Extremety ED: Negative for edema or tenderness General Extremity: Negative for edema Neuro oriented x3 and no sensory deficits noted Sensorium / Orientation: awake and alert Skin no rashes or lesions noted and no wounds MDM MDM MDM Narrative Medical decision making narrative: Interventions / MDM: Differential diagnosis: Dilated right pupil, blurry vision, elevated intraocular pressure Diagnosis considered but do not suspect: N/A My EKG interpretation: Sinus rhythm rate of 59, no ST changes isolated T wave version leads III nonspecific QTc 459. Imaging independently reviewed and interpreted by myself: CT brain: No masses seen. However discussion with radiologist concerns for possible Ponto mesencephalic junction infarct near the brainstem. External documents reviewed: N/A Test considered but not ordered:N/A ED course: Asymmetric pupils constrict to light, turned on the lights, she states he has blurry vision. New contact lens out of the package. Denies any eyedrops. Sent to CT for further evaluation will obtain eye pressures and visual acuity. 1939: CT brain no masses seen. Performed eye pressure with contacts off. Elevated 35 on the right, 33 on the left. Blurry vision on the left. Last eye exam May 2023, family history of glaucoma, she has never been told of any elevated eye pressures for eye exam. Visual acuity being performed with cont acts being placed back in at this time. I will discuss with ophthalmology plan of care for the patient. 1944: Visual acuity with contact lens, 20/15 OS, 20/20 OD, 20/20 OU. Reported some blurriness to the right peripheral, no visual loss with it. 2009: Discussed with radiologist there is concerns for possible infarct pontomesencephalic junction this is near the brainstem. Patient's NIH is a 0 on exam. Blurry vision right eye, not a candidate for TNK. I will send her for CT angiogram head and neck as symptoms within 24 hours. I discussed 2-week findings with the patient. Will check EKG and labs. Will plan for admission. In addition I did speak with ophthalmology Dr. Kyle with the eye pressures, discussed performing with Keon-Pen with less than 5% precision. No urgent treatment or intervention at this time, he states can follow-up with ophthalmology when discharge for thorough eye exam evaluation. 2204: His CT angiogram is negative. EKG is sinus rhythm. Labs are stable. I will discuss with hospitalist for admission. I discussed with Dr. Nolan for admission. Re-evaluation: stable Disposition discussed with patient/family/significant other: Patient and significant other. Case discussed with consulting clinician: Ophthalmology, hospitalist This note was generated with [employer] dictation software. It may contain incorrect words, spelling, and punctuation that were not noted in checking the note before signing. Discharge Plan Dx/Rx/DC Orders Clinical Impression: Acute CVA (cerebrovascular accident), Dilated pupil, Elevated IOP Disposition Disposition: Acute Care Hospital [facility]
[2024-07-26] MEDS: Tetracaine 0.5% Ophthalmic Bottle 1 DRP RIGHT EYE (20:05)
[2024-07-26] MEDS: LORazepam 0.5 MG Tablet PO (20:05)
--- NOTE | 2024-07-26 20:11 | CT_ITS ---
STUDY: CTA HEAD AND NECK WITH CONTRAST REASON FOR EXAM: Female, 43 years old. stroke RADIATION DOSAGE (If Supplied By Facility): CTDIvol = ( 20.25 ) mGy, DLP = ( 759.50 ) mGycm TECHNIQUE: CT angiography was performed with a multi-detector CT scanner. Data acquisition was obtained from the skull base through the vertex following intravenous administration of IV 100mL [id number]-[id number]. MIP images were reconstructed from the axial data set. Post-processing of the angiographic images was performed, with multiplanar reformation and 3D reconstruction. Individualized dose optimization techniques were used for this CT. COMPARISON: No relevant priors. FINDINGS: Normal bilateral petrous carotid arteries. Normal right cavernous carotid artery with a normal supraclinoid bifurcation. Normal left cavernous carotid artery with a normal supraclinoid bifurcation. Nonvisualized right A1 segments of the anterior cerebral artery which may be consistent with normal variant. Normal left A1 segments of the anterior cerebral artery. Normal intact anterior communicating artery (ACOM). Normal bilateral A2 segments of the anterior cerebral arteries. Normal right M1 and M2 segments of the middle cerebral arteries, with a normal M1 bifurcation. Normal left M1 and M2 segments of the middle cerebral arteries, with a normal M1 bifurcation. Posterior communicating arteries are not visualized consistent with normal variant.). Normal bilateral vertebral arteries. Normal basilar artery with a normal basilar bifurcation. The visualized bilateral superior cerebellar (SCA) arteries are normal. Normal bilateral P1, P2 and visualized P3 segments of the posterior cerebral arteries. There is no demonstrated aneurysm of the [place]. AORTIC ARCH: Normal visualized aortic arch. Normal origins of the brachiocephalic, left common carotid, and left subclavian arteries. RIGHT CAROTID ARTERIES: Normal right common carotid artery (CCA). Normal right common carotid bulb. Normal origin of the right internal carotid (ICA) artery without a hemodynamically significant stenosis. Normal visualized cervical portion of the right internal carotid artery. Normal origin of the right external carotid artery (ECA). LEFT CAROTID ARTERIES: Normal left common carotid artery (CCA). Normal left common carotid bulb. Normal origin of the left internal carotid (ICA) artery without a hemodynamically significant stenosis. Normal visualized cervical portion of the left internal carotid artery. Normal origin of the left external carotid artery (ECA). VERTEBRAL ARTERIES: Normal bilateral vertebral arteries. Postsurgical change status post thyroidectomy CT/CTA Head AND Neck W/ Contrast IMPRESSION: Normal CTA Head and neck with contrast. Electronically Signed: Masood Johnson MD at 21:59 EST ,
--- NOTE | 2024-07-26 20:12 | EKG12_ITS ---
Test Reason : DYSRHYTHMIA Blood Pressure : */* mmHG Vent. Rate : 59 BPM Atrial Rate : 59 BPM P-R Int : 158 ms QRS Dur : 92 ms QT Int : 464 ms P-R-T Axes : 13 4 12 degrees QTcB Int : 459 ms Sinus bradycardia Otherwise normal ECG Confirmed by BAYRON KEARNEY, LEONIDAS ([id number]), script editor YAMILE TURNER ([id number]) on 07/31/2024 7:15:39 AM Referred By: Confirmed By: LEONIDAS VERMA MD
[2024-07-26 20:28] LABS: Absolute Lymphocyte Count 2.99 X10^3/uL (0.83-4.51); Absolute Neutrophil Count 9.2 X10^3/uL (2.0-7.7); Basophil# 0.07 X10^3/uL; Basophil% 0.5 % (0-1); Eosinophil# 0.06 X10^3/uL; Eosinophils% 0.5 % (0-5); Hematocrit 40.6 % (37-47); Hemoglobin 13.5 g/dL (12.0-15.0); Lymphocyte # 2.99 X10^3/ul (0.83-4.51); Lymphocyte % 22.8 % (19-41); Mean Corp Hgb Conc 33.3 g/dL (32-36); Mean Corpuscular Volume 84.1 fL (81-99); Mean Platelet Vol. 10.6 fl (6.2-12.0); Monocyte% 5.3 % (0-10); NRBC Flagged by Analyzer 0 % (0-5); Neutrophil # 9.17 X10^3/uL (2.7-7.7); Neutrophil % 69.9 % (47-70); Platelet Count 464 K/mm3 (150-450); RBC Distribution Width CV 13.9 % (11.6-14.6); RBC Distribution Width SD 42.4 fl (35.1-43.9); Red Blood Count 4.83 M/mm3 (4.2-5.4); White Blood Count 13.1 K/mm3 (4.4-11.0)
[2024-07-26 20:38] LABS: Partial Thromboplast Time 24.6 Seconds (24.1-36.2)
[2024-07-26 20:41] LABS: International Normalized Ratio 1.1; Prothrombin Time (Protime)PT. 13.9 SECONDS (11.7-14.9)
[2024-07-26 20:45] LABS: Anion Gap 9 (5-15); BUN 8 mg/dL (7-18); BUN/Creat Ratio 8.8 RATIO (10-20); Calcium,Total 8.3 mg/dL (8.5-10.1); Chloride 103 mmol/L (98-107); Creatinine, Serum 0.91 mg/dL (0.55-1.02); EST Glomerular Filtration Rate 71 mL/min (>60); Est Glom Filt Rate - Afr Amer 86 mL/min (>60); Estimated Creatinine Clearance 127.31 ml/min; Glucose 159 mg/dL (74-106); Potassium 2.9 mmol/L (3.5-5.1); Sodium Level 137 mmol/L (136-145)
--- NOTE | 2024-07-26 22:16 | PCM.HP.STD ---
HPI - General General Date of Admission: 07/26/24 Date of Service: 07/26/24 Chief Complaint: R eye blurry vision. HPI Narrative The patient is a 43 y/o F w/ PMHx: Morbid obesity, Anxiety and Depression, Hypothyroidism s/p prior thyroidectomy who presents to the [facility] ED on 07/26/24 with history of onset right eye blurry vision and also noted that her right eye was dilated compared to the left just prior to ED arrival with no associated headache however while in the ED she did note some mild tingling around the right side of her face and lips incidentally noting that she was 3 days postop from an elective cholecystectomy discharged the same day on only Tylenol and ibuprofen however she does report that she took tramadol on day of presentation but also recently did have a new set of contact lenses that she took out of the package on day of presentation. She states that she did start having the blurry vision when she placed the contact however it worsened throughout the day and reports that she placed the contact at 10 AM. In the ED patient noted the right pupil to be dilated at 4 mm but was constricting to light with no fixed position and left eye noted to be 2 mm also constricting to light. She states she cannot see out of the eye but it is blurry. NIH stroke scale assessment in the ED is 0. Patient does not smoke nor does she have take any control items. She denies having ever been or having had any miscarriages. Workup in the ED included T98.7, heart rate 70, BP 132/104, respiratory rate 16, 99% on room air with most recent repeat vitals heart rate 59, BP 147/89, respiratory rate 11, 100% room air, CBC with WC 13.1, human 13.5, platelet 464 with left shift, unremarkable coags, BMP with potassium 2.9, glucose 159 otherwise not marked appearing, CT of the brain with findings suggestive of possible infarct at the pontomesencephalic junction, CTA head neck unremarkable, EKG with sinus rhythm with rate 59 with isolated T wave inversion in lead III with no acute evidence of ischemia. ED did perform eye pressure evaluation with her contacts off with mild elevation of 35 in the right, 33 in the left. Visual acuity performed with contacts with noted 20/15 OS, 20/20 OD, 20/20 OU with ongoing blurriness primarily to the right peripherally. ED did discuss case with ophthalmology Dr. Kyle who discussed performing Keon-Pen with less than 5% precision with note that there was no urgent treatment or intervention at that time with plan follow-up with ophthalmology when discharged for very thorough eye examination. In the ED patient administered right eye tetracaine 0.5% drop as well as Ativan 0.5 mg p.o. x 1. PFSH Medical History (Updated 07/26/24 @ 23:[address] Glenda Nolan MD) History of nephrolithiasis Anxiety and depression Morbid obesity Home Medications ?Medication ?Instructions ?Recorded ?Last Taken ?Type fluoxetine 20 mg capsule 20 mg PO DAILY 03/27/22 07/26/24 History levothyroxine 200 mcg tablet 200 mcg PO DAILY 03/27/22 07/26/24 History lorazepam 0.5 mg tablet 0.5 mg PO QHS 05/04/22 07/25/24 History fluoxetine 40 mg capsule 40 mg PO DAILY 07/26/24 07/26/24 History Allergy/AdvReac Type Severity Reaction Status Date / Time No Known Allergies Allergy Verified 07/26/24 19:06 Family History (Updated 07/26/24 @ 23:[address] Glenda Nolan MD) Mother Heart disease Diabetes Father Diabetes PAF (paroxysmal atrial fibrillation) Brain tumor Skin cancer Surgical History History of cholecystectomy H/O thyroidectomy Social History (Updated 07/26/24 @ 23:[address] Glenda Nolan MD) household members: spouse Smoking Status: Never smoker alcohol intake: never substance use type: does not use ROS ROS Narrative Admission Review of Systems: CONSTITUTIONAL: No weight loss, fever, chills, + weakness or fatigue. HEENT: + Right eye vision changes with blurriness and change to pupillary size. Eyes: No visual loss, double vision or yellow sclerae. Ears, Nose, Throat: No hearing loss, sneezing, congestion, runny nose or sore throat. SKIN: No rash or itching, lesions, wounds. CARDIOVASCULAR: No chest pain, chest pressure or chest discomfort, palpitations, edema, orthopnea, syncopal events. RESPIRATORY: No shortness of breath, cough or sputum, wheezing, hemoptysis. GASTROINTESTINAL: No anorexia, nausea, vomiting or diarrhea, abdominal pain, melena, BRBPR. GENITOURINARY: No dysuria, frequency, urgency or retention. NEUROLOGICAL: + Right eye vision changes with blurriness and change to pupillary size, transient right face paresthesias. No headache, dizziness, syncope, paralysis, ataxia, focal weakness, change in bowel or bladder control, seizure. MUSCULOSKELETAL: + muscle, back pain, joint pain or stiffness. HEMATOLOGIC: No anemia, bleeding or bruising. LYMPHATICS: No enlarged nodes. No history of splenectomy. PSYCHIATRIC: + History of anxiety and depression. ENDOCRINOLOGIC: No reports of sweating, cold or heat intolerance. No polyuria or polydipsia. ALLERGIES: No history of asthma, hives, eczema or rhinitis. Vital Signs Vital Signs Vital Signs: 07/26/24 19:06 07/26/24 20:05 07/26/24 20:45 Temperature 98.7 F Temperature Source Temporal Pulse Rate 70 65 Respiratory Rate 16 20 H Blood Pressure 132/104 H 192/96 H Blood Pressure Mean 113 124 Pulse Ox 99 96 Oxygen Delivery Method Room Air Room Air 07/26/24 20:46 07/26/24 21:00 07/26/24 21:00 Temperature Temperature Source Pulse Rate 61 59 L 53 L Respiratory Rate 14 11 L 10 L Blood Pressure 147/89 H 147/89 H Blood Pressure Mean 108 107 Pulse Ox 97 100 97 Oxygen Delivery Method 07/26/24 21:15 07/26/24 21:30 07/26/24 21:45 Temperature Temperature Source Pulse Rate 58 L 62 75 Respiratory Rate 11 L 13 18 Blood Pressure 133/81 H 141/78 H 155/88 H Blood Pressure Mean 98 97 108 Pulse Ox 97 97 95 Oxygen Delivery Method 07/26/24 21:52 07/26/24 22:00 Temperature 98.1 F Temperature Source Pulse Rate 57 L 57 L Respiratory Rate 13 16 Blood Pressure 155/88 H 151/81 H Blood Pressure Mean 110 99 Pulse Ox 96 95 Oxygen Delivery Method Weight Weight: 352 lb 1.251 oz Body Mass Index (BMI) 53.5 Physical Exam Narrative Physical Examination: General: Awake, alert, oriented x 3 and cooperative, seated upright in the ED bed, fatigued, anxious otherwise no acute distress. Skin: Normal color, normal turgor, no icterus, no cyanosis except for abdominal trocar incisions well-approximated with bruising around these regions with no drainage. HEENT: AT/NC, EOMI, right pupil to be dilated at 4 mm but was constricting to light with no fixed position and left eye noted to be 2 mm also constricting to light, mildly dry MM, no carotid bruits or JVD noted. Lungs: Mildly diminished, greater bases, proper effort, no rales, ronchi or wheezing. Heart: Regular rate and rhythm; no gallop, rub audible. Abdomen: Soft, morbidly obese, expected tenderness to palpation to the abdomen given recent status post cholecystectomy status, see skin, distant BS, difficult to discern distention HSM given habitus. Extremities: No cyanosis, clubbing, or edema. Neurological: Patient awake, alert, oriented as noted, cognitive function intact; pupils equally reactive to light and accommodation, cranial nerves grossly normal aside from obvious noted deficits with the eyes with as noted dilated right pupil approximately 4 mm and left at 2 mm both constricting described as blurry vision only, moving all 4 extremities, no focal deficits, strength preserved, normal sensation to the face as previously reported mild right sided facial paresthesias, FTN/HTS normal, equivocal Babinski. Psychiatric: Affect appears anxious with history of underlying anxiety and depression. Results Lab / Micro Data 07/26/24 19:14 07/26/24 19:14 Labs: Laboratory Results - last 24 hr 07/26/24 19:14: WBC 13.1 H, RBC 4.83, Hgb 13.5, Hct 40.6, MCV 84.1, MCH 28.0, MCHC 33.3, RDW Std Deviation 42.4, RDW Coeff of Madeline 13.9, Plt Count 464 H, MPV 10.6, Immature Gran % (Auto) 1.000 H, Neut % (Auto) 69.9, Lymph % (Auto) 22.8, Centre % (Auto) 5.3, Eos % (Auto) 0.5, Baso % (Auto) 0.5, Absolute Neuts (auto) 9.2 H, Absolute Lymphs (auto) 2.99, Nucleated RBC % 0, PT 13.9, INR 1.1, APTT 24.6, Sodium 137, Potassium 2.9 L, Chloride 103, Carbon Dioxide 25.0, Anion Gap 9, BUN 8, Creatinine 0.91, Estim Creat Clear Calc 127.31, Est GFR (MDRD) Af Amer 86, Est GFR (MDRD) Non-Af 71, BUN/Creatinine Ratio 8.8 L, Glucose 159 H, Calcium 8.3 L Imaging Radiology Impression Brain CT 07/26/24 19:14 IMPRESSION: Findings suggesting possible infarct at the pontomesencephalic junction. MRI recommended for further evaluation Electronically Signed: Masood Johnson MD at 20:06 EST , ADDENDUM: 07/26/242016 IMPRESSION: Findings suggesting possible infarct at the pontomesencephalic junction. MRI recommended for further evaluation N.B. : The above Results were Read Back by Masood Johnson MD to Anatoliy Vargas DO, and understanding confirmed on 07/26/2024 20:10:21 (ET). Electronically Signed: Masood Johnson MD at 20:06 EST , Head/Neck CTA 07/26/24 20:11 IMPRESSION: Normal CTA Head and neck with contrast. Electronically Signed: Masood Johnson MD at 21:59 EST , Assessment & Plan Assessment/Plan (1) Acute CVA (cerebrovascular accident): PLAN: Plan The patient is a 43 y/o F w/ PMHx: Morbid obesity, Anxiety and Depression, Hypothyroidism s/p prior thyroidectomy who presents to the [facility] ED on 07/26/24 with history of onset right eye blurry vision and also noted that her right eye was dilated compared to the left just prior to ED arrival with no associated headache however while in the ED she did note some mild tingling around the right side of her face and lips incidentally noting that she was 3 days postop from an elective cholecystectomy discharged the same day on only Tylenol and ibuprofen however she does report that she took tramadol on day of presentation but also recently did have a new set of contact lenses that she took out of the package on day of presentation. #1. Right eye vision changes with dilated pupil with CT concerning for possible acute infarct at the pontomesencephalic junction with also incidentally noted mildly elevated right eye pressures with family history of glaucoma of unclear type: Will admit to PCU, will obtain MRI Brain with and without contrast given concern and age, will obtain ECHO with bubble study, PT/OT/Speech/Nutrition evaluation per protocol. Will allow permissive HTN, maintain on asa, add high-dose statin w/ AM FLP, fall precautions. Mag, TSH, FLP, HgbA1c requested. Maintain on fall and aspiration precautions. Given age and findings to be thorough especially prior to any chemoprophylaxis administration will request hypercoagulable panel. UDS requested. Neurology consultation requested. Once discharge patient will need to follow-up with ophthalmology Dr. Kyle for thorough ophthalmologic examination. #2. Elevated BP without hypertensive diagnosis however upon BP trending does appear likely to have underlying hypertension that has been untreated: Will maintain permissive hypertension given presentation, will have as needed agents per stroke protocol. #3. Hyperglycemia without diabetic history: Admission glucose 159, possibly stress response but given presentation as noted hemoglobin A1c pending. #4. Hypokalemia: Admission K+ 2.9, magnesium level requested, supplementation given, repeat level in AM. #5. Hypothyroidism: Status post previous thyroidectomy, continue home levothyroxine regimen, TSH pending. #6. Anxiety and depression: We will continue patient home fluoxetine and cautiously her lorazepam regimen. #7. Morbid Obesity: Weight loss and lifestyle changes encouraged, nutrition consulted. #8. DVT prophylaxis: Lovenox. Charges/Coding Visit Charges Inpatient E&M: 27912 Init Hosp L3
[2024-07-26 23:01] LABS: Magnesium 2.2 mg/dL (1.6-2.6)
--- NOTE | 2024-07-26 23:49 | ECHOCS_ITS ---
Reason For Study: TIA/CVA Procedure This was a 2D Doppler, Color Flow transthoracic echocardiogram. The study was technically difficult. Contrast injection was performed. Exam performed portable in patient room. Left Ventricle Normal LV size. The estimated ejection fraction is 65 %. No evidence for diastolic dysfunction. No regional wall motion abnormalities noted. Right Ventricle Normal RV size. Normal systolic function. Atria The left and right atria are normal. Bubble contrast study is negative for PFO/ASD. Mitral Valve There is no mitral valve stenosis. Trivial mitral valve insufficiency. Tricuspid Valve There is no tricuspid stenosis. Trivial tricuspid valve insufficiency. Unable to estimate RV systolic pressure due to insufficient tricuspid regurgitant envelope. Aortic Valve Trisinus/trileaflet aortic valve. There is no aortic stenosis. No aortic valve insufficiency. Pulmonic Valve There is no pulmonic valvular stenosis. No pulmonic valve insufficiency. Great Vessels Normal aortic root. Pericardium/Pleural No pericardial effusion. Medication Diluted definity 1.5ml given slow IV push to enhance endocardial definition. Performed a rapid injection of agitated mix of 9 cc saline and 1cc air to assess for atrial septal defect. MMode/2D Measurements & Calculations LVIDd: 5.3 cm IVSd: 1.1 cm Ao root diam: 3.2 cm LVIDs: 3.5 cm LVPWd: 1.1 cm RVDd: 4.2 cm FS: 32.6 % LAV(MOD-bp): 66.3 ml LVAd ap4: 41.9 cm2 SV(MOD-sp4): 94.9 ml LAV(MOD-bp) Indexed: 25.5 ml/m2 LVLd ap4: 9.3 cm SI(MOD-sp4): 36.6 ml/m2 LAV(MOD-sp2): 57.1 ml EDV(MOD-sp4): 154.4 ml LAV(MOD-sp4): 77.0 ml EDV(sp4-el): 160.5 ml LVAs ap4: 22.8 cm2 LVLs ap4: 7.5 cm ESV(MOD-sp4): 59.4 ml ESV(sp4-el): 59.1 ml EF(MOD-sp4): 61.5 % EF(sp4-el): 63.2 % SV(sp4-el): 101.5 ml LA A4 area: 23.1 cm2 LA dimension(2D): 4.3 cm RA A4 area: 21.0 cm2 TAPSE: 2.8 cm Time Measurements MV dec time: 0.25 sec Doppler Measurements & Calculations MV E max hao: 87.3 cm/sec Lat Peak E' Hao: 12.3 cm/sec Med Peak E' Hao: 6.9 cm/sec MV A max hao: 97.0 cm/sec E/E' lat: 7.1 E/E' med: 12.7 MV E/A: 0.90 MV V2 max: 100.0 cm/sec MV P1/2t max hao: 101.0 cm/sec Ao V2 max: 150.5 cm/sec MV max P.0 mmHg MV P1/2t: 79.0 msec Ao max P.1 mmHg MV V2 mean: 53.3 cm/sec MV dec slope: 374.3 cm/sec2 Ao V2 mean: 102.3 cm/sec MV mean P.4 mmHg MVA(P1/2t): 2.8 cm2 Ao mean P.7 mmHg MV V2 VTI: 34.5 cm Ao V2 VTI: 30.1 cm AV (velocity ratio): 0.81 LV V1 max: 109.3 cm/sec PA V2 max: 119.3 cm/sec TR max hao: 270.9 cm/sec LV V1 max P.8 mmHg TR max P.3 mmHg LV V1 mean P.8 mmHg LV V1 mean: 80.2 cm/sec LV V1 VTI: 24.2 cm ECHO/Echo Complete W/ Contrast Interpretation Summary The estimated ejection fraction is 65 %. No evidence for diastolic dysfunction. Trivial mitral valve insufficiency. Ordering Physician: Glenda Nolan Performed By: Jacques Boyce RCS
[2024-07-27] VITALS: BP 155/93; PULSE 54; RESP 16; TEMP 36.9; O2SAT 98
[2024-07-27] MEDS: 0.9% Normal Saline (1000mL) 1,000 ML 100 ML IV (00:35)
[2024-07-27] MEDS: Potassium Chloride Oral Tablet 20 MEQ 40 MEQ PO (00:35)
[2024-07-27] MEDS: Aspirin 325 MG Tablet PO (00:35)
[2024-07-27] MEDS: 0.9% Saline Lock 10 ML Syringe IV ×2 (01:08→06:01)
[2024-07-27 03:01] VITALS: BMI 52.0
[2024-07-27 04:00] VITALS: BP 174/94; PULSE 67; RESP 18; TEMP 36.5; O2SAT 97
[2024-07-27 05:03] LABS: Amphetamine Urine NEGATIVE (<1000 ng/mL); Barbiturate Urine VISTA NEGATIVE (< 200 ng/mL); Benzodiazepine Urine VISTA NEGATIVE (< 200 ng/mL); Cocaine Urine VISTA NEGATIVE (< 300 ng/mL); Ecstacy Urine VISTA NEGATIVE (< 500 ng/mL); Methadone Urine VISTA NEGATIVE (< 300 ng/mL); PCP Urine VISTA NEGATIVE (< 25 ng/mL); THC Urine VISTA POSITIVE (< 50 ng/mL); Vista UDS pH Range 6
[2024-07-27 05:05] VITALS: BMI 52.0
[2024-07-27] MEDS: Levothyroxine 100 MCG Tablet 200 MCG PO (06:01)
[2024-07-27 06:57] LABS: Absolute Lymphocyte Count 1.77 X10^3/uL (0.83-4.51); Absolute Neutrophil Count 5.9 X10^3/uL (2.0-7.7); Basophil# 0.04 X10^3/uL; Basophil% 0.5 % (0-1); Eosinophil# 0.07 X10^3/uL; Eosinophils% 0.8 % (0-5); Hematocrit 35.8 % (37-47); Hemoglobin 11.4 g/dL (12.0-15.0); Lymphocyte # 1.77 X10^3/ul (0.83-4.51); Lymphocyte % 21.2 % (19-41); Mean Corp Hgb Conc 31.8 g/dL (32-36); Mean Corpuscular Hgb 27.1 pg (27.0-32.0); Mean Corpuscular Volume 85.2 fL (81-99); Mean Platelet Vol. 10.2 fl (6.2-12.0); Monocyte# 0.52 X10^3/uL; Monocyte% 6.2 % (0-10); NRBC Flagged by Analyzer 0 % (0-5); Neutrophil # 5.91 X10^3/uL (2.7-7.7); Neutrophil % 70.7 % (47-70); Platelet Count 352 K/mm3 (150-450); RBC Distribution Width SD 42.9 fl (35.1-43.9); White Blood Count 8.4 K/mm3 (4.4-11.0)
--- NOTE | 2024-07-27 07:51 | PCM.PN.HOSP ---
Reason for Visit Reason for Visit: Diagnoses Cerebral infarction, unspecified (07/26/24) Subjective Subjective Patient is a 43-year-old lady who presented with visual impairment involving the right eye more on the lateral side. CT of the brain obtained demonstrated Findings suggesting possible infarct at the pontomesencephalic junction. Admitted to a monitored bed for subsequent Objective Data Objective Data Vital Signs: Vital Signs Temp Pulse Resp BP Pulse Ox O2 Del Method 97.7 F L 67 18 174/94 H 97 Room Air 07/27/24 04:00 07/27/24 04:00 07/27/24 04:00 07/27/24 04:00 07/27/24 04:00 07/27/24 04:00 Oxygen Delivery Method Room Air Weight: 155 kg Body Mass Index (BMI) 52.0 Lab / Micro Data 07/27/24 06:00 07/27/24 06:00 Labs: Laboratory Results - last 24 hr 07/26/24 19:14: WBC 13.1 H, RBC 4.83, Hgb 13.5, Hct 40.6, MCV 84.1, MCH 28.0, MCHC 33.3, RDW Std Deviation 42.4, RDW Coeff of Madeline 13.9, Plt Count 464 H, MPV 10.6, Immature Gran % (Auto) 1.000 H, Neut % (Auto) 69.9, Lymph % (Auto) 22.8, Bartholomew % (Auto) 5.3, Eos % (Auto) 0.5, Baso % (Auto) 0.5, Absolute Neuts (auto) 9.2 H, Absolute Lymphs (auto) 2.99, Nucleated RBC % 0, PT 13.9, INR 1.1, APTT 24.6, Sodium 137, Potassium 2.9 L, Chloride 103, Carbon Dioxide 25.0, Anion Gap 9, BUN 8, Creatinine 0.91, Estim Creat Clear Calc 127.31, Est GFR (MDRD) Af Amer 86, Est GFR (MDRD) Non-Af 71, BUN/Creatinine Ratio 8.8 L, Glucose 159 H, Calcium 8.3 L 07/26/24 22:34: Magnesium 2.2 07/27/24 04:24: Urine Opiates Screen NEGATIVE, Urine Methadone Screen NEGATIVE, Ur Barbiturates Screen NEGATIVE, Ur Phencyclidine Scrn NEGATIVE, Ur Amphetamines Screen NEGATIVE, MDMA (Ecstasy) Screen NEGATIVE, U Benzodiazepines Scrn NEGATIVE, Urine Cocaine Screen NEGATIVE, U Cannabinoids Screen POSITIVE H, Ur Drug Screen Comment 07/27/24 06:00: WBC 8.4, RBC 4.20, Hgb 11.4 L, Hct 35.8 L, MCV 85.2, MCH 27.1, MCHC 31.8 L, RDW Std Deviation 42.9, RDW Coeff of Madeline 14.0, Plt Count 352, MPV 10.2, Immature Gran % (Auto) 0.600, Neut % (Auto) 70.7 H, Lymph % (Auto) 21.2, Bartholomew % (Auto) 6.2, Eos % (Auto) 0.8, Baso % (Auto) 0.5, Absolute Neuts (auto) 5.9, Absolute Lymphs (auto) 1.77, Nucleated RBC % 0 Radiography Diagnostic Testing: Radiology Impression Brain CT 07/26/24 19:14 IMPRESSION: Findings suggesting possible infarct at the pontomesencephalic junction. MRI recommended for further evaluation Electronically Signed: Masood Johnson MD at 20:06 EST Reading Location ID and State: [facility] / [place] Tel [phone], Service support , ADDENDUM: 07/26/242016 IMPRESSION: Findings suggesting possible infarct at the pontomesencephalic junction. MRI recommended for further evaluation N.B. : The above Results were Read Back by Masood Johnson MD to Anatoliy Vargas DO, and understanding confirmed on 07/26/2024 20:10:21 (ET). Electronically Signed: Masood Johnson MD at 20:06 EST , Head/Neck CTA 07/26/24 20:11 IMPRESSION: Normal CTA Head and neck with contrast. Electronically Signed: Masood Johnson MD at 21:59 EST , Physical Exam Narrative GENERAL: cooperative HEENT: Atraumatic; normocephalic EYES; Anicteric, Normal Conjunctiva NECK; supple, normal thyroid, RESPIRATORY: Diminished to auscultation CARDIOVASCULAR: Regular S1 S2, GI: soft, normoactive bowel sounds, : No Renal angle tenderness; EXTREMITIES: No edema, no clubbing, MUSCULOSKELETAL: no muscle wasting NEURO: Awake; no lateralizing signs. SKIN: No Rash PSYCH; Flat affect Assessment & Plan Assessment/Plan (1) Acute CVA (cerebrovascular accident): PLAN: Plan Patient is a 43-year-old lady who presented with visual impairment involving the right eye more on the lateral side. CT of the brain obtained demonstrated Findings suggesting possible infarct at the pontomesencephalic junction. Admitted to a monitored bed for subsequent 1. Right visual impairment ? Suspicious for acute CVA. Initial imaging studies with CT demonstrated Findings suggesting possible infarct at the pontomesencephalic junction. Admitted to a monitored bed for subsequent evaluation. Subsequent MRI was however negative for acute CVA. Consult was placed to teleneuro on admission awaiting input. Plan is for patient to follow-up with Dr. Kyle with ophthalmology as outpatient when discharged 2. Hypokalemia -Corrected per protocol 3. Elevated blood pressure ? Patient does not have known hypertensive however given the suspicion of acute CVA on admission permissive hypertension protocol was followed 4. Class III obesity with BMI of 52 ? Complicating care weight loss advised 5. Hyperglycemia ? Without known diagnosis of diabetes hemoglobin A1c ordered came back at 5.7 6. Hypothyroidism ? Iatrogenic following thyroidectomy, patient is on levothyroxine home dose continued 7. Depression with anxiety ? Patient is on fluoxetine as well as lorazepam continue 8. DVT prophylaxis ? SC enoxaparin Charges/Coding Visit Charges Inpatient E&M: 66279 Subs Hosp L2
[2024-07-27 08:00] VITALS: BP 140/75; PULSE 58; RESP 18; TEMP 36.6; O2SAT 94
[2024-07-27 08:06] LABS: ALB/GLOB Ratio 0.7 RATIO (0.9-2.4); AST(SGOT) 30 U/L (15-37); Alanine Aminotransfer ALT/SGPT 29 U/L (13-56); Albumin, Serum 2.7 g/dL (3.2-5.0); Alkaline Phosphatase 86 U/L (45-117); Anion Gap 9 (5-15); BUN 6 mg/dL (7-18); BUN/Creat Ratio 9.5 RATIO (10-20); Calcium,Total 7.8 mg/dL (8.5-10.1); Chloride 107 mmol/L (98-107); Cholesterol 147 mg/dL (200); Creatinine, Serum 0.63 mg/dL (0.55-1.02); EST Glomerular Filtration Rate 108 mL/min (>60); Est Glom Filt Rate - Afr Amer 131 mL/min (>60); Estimated Creatinine Clearance 180.51 ml/min; Globulin 3.8 g/dL (2.2-4.2); Glucose 98 mg/dL (74-106); High Density Lipoprotein 39 mg/dL; Protein, Total 6.5 g/dL (6.4-8.2); Sodium Level 139 mmol/L (136-145); Triglycerides 141 mg/dL; Very Low Density Lipoprotein 28 mg/dL (5-40)
[2024-07-27] MEDS: Fluoxetine HCl 40 MG CAPSULE PO (08:24)
[2024-07-27] MEDS: Aspirin 81 MG TAB.CHEW PO (08:24)
[2024-07-27] MEDS: Enoxaparin 40 MG/0.4 ML Syringe SC (08:24)
[2024-07-27] MEDS: FLUoxetine 20 MG Capsule PO (08:24)
[2024-07-27] MEDS: LORazepam 0.5 MG Tablet PO ×2 (08:49→09:22)
--- NOTE | 2024-07-27 09:30 | MRI_ITS ---
EXAM: MR HEAD WITHOUT AND WITH INTRAVENOUS CONTRAST CLINICAL INDICATION: Vision changes, ? CVA morbid obesity. History of thyroidectomy and cholecystectomy. TECHNIQUE: Multiplanar and multisequence MR images of the brain were obtained without and with intravenous contrast. CONTRAST: IV 300 CC CLARISCAN COMPARISON: CT head without contrast, CTA head and neck with contrast 07/26/2024. FINDINGS: BRAIN AND EXTRA-AXIAL SPACES: Unremarkable. No intra- or extra-axial hemorrhage. No intracranial mass or mass effect. Posterior fossa structures are unremarkable. No hydrocephalus. No diffusion restriction to suspect acute or subacute ischemic infarct. No focal signal abnormalities throughout the brain parenchyma in all pulse sequences. Normal ventricles and cisterns. Following IV contrast administration, there are no abnormally enhancing lesions intra-axially or extra-axially. SELLA: Unremarkable. Normal sella turcica, pituitary gland, infundibular stalk, optic chiasm and hypothalamus. AUDITORY SYSTEM: Unremarkable. The internal auditory canals are patent. BONES/JOINTS: Unremarkable. No discrete lytic or blastic abnormalities. SINUSES: Unremarkable as visualized. Clear. MASTOID AIR CELLS: Unremarkable as visualized. Clear. ORBITS: Unremarkable as visualized. Both globes, extraocular muscles, optic nerves and retrobulbar fat appear unremarkable. VASCULATURE: Unremarkable as visualized. Normal flow voids in the major intracranial circulation. MRI/Brain W/WO Contrast IMPRESSION: Negative MRI brain without and with intravenous contrast. Electronically Signed: Alexx Feliz MD at 12:03 [facility] ,
[2024-07-27] MEDS: Potassium Chloride Oral Tablet 20 MEQ 60 MEQ PO (11:50)
[2024-07-27 12:00] VITALS: BP 164/99; PULSE 78; RESP 18; TEMP 36.3; O2SAT 98
[2024-07-27 12:03] LABS: Hemoglobin A1c 5.7 % (3.8-5.6)
--- NOTE | 2024-07-27 12:15 | NEURO.CONS ---
Assessment and Plan: Neuro Assessment/Plan SANDY GARCIA, is a 43 F with obesity, Anxiety and Depression, Hypothyroidism s/p prior thyroidectomy and recent cholecystectomy who presents on 07/26/24 for monocular right blurry vision. She was at her house watching tv and noted blurry vision, only in her right eye, she went to the restroom and noted that her right pupil was enlarged and given this came to the hospital. In the ED, CTH and CTAs were done which showed a possible pontine stroke vs artifact. MRI brain neg. She did report some tingling around her lips. She did place a contacts that morning. Documentation from ed shows 2mm pupil difference, 4mm right and 2 on left. Her presentation is not consistent with a stroke as monocular blurry vision does not localize to the brain, still on going but better after 24h with neg MRI. Most of the time monocular vision issue is an organic eye issue so recommend f/u with optho, the tingling sensation likely psychosomatic and is positive symptom. On my exam 2mm pupil difference as well which can be physiological. No exposure to pesticides, breathing treatments or eye drops. Unclear cause of right eye blurriness and 2mm pupil difference but most likely an eye issue and should f/u with optho and pcp. Not a stroke. No furhter recs. Please reachout for any questions or concerns. Stroke to sign off. I personally attended this patient and spent a total time of 45minutes evaluating this patient including clinical assessment, review of chart, medical history imaging, and determining appropriate treatment and workup. HPI Consult Data Date of Consult: 07/27/24 HPI Narrative HPI Narrative: SANDY GARCIA, is a 43 F with obesity, Anxiety and Depression, Hypothyroidism s/p prior thyroidectomy and recent cholecystectomy who presents on 07/26/24 for monocular right blurry vision. She was at her house watching tv and noted blurry vision, only in her right eye, she went to the restroom and noted that her right pupil was enlarged and given this came to the hospital. In the ED, CTH and CTAs were done which showed a possible pontine stroke vs artifact. MRI brain neg. She did report some tingling around her lips. She did place a contacts that morning. Documentation from ed shows 2mm pupil difference, 4mm right and 2 on left. Her presentation is not consistent with a stroke as monocular blurry vision does not localize to the brain, still on going but better after 24h with neg MRI. Most of the time monocular vision issue is an organic eye issue so recommend f/u with optho, the tingling sensation likely psychosomatic and is positive symptom. On my exam 2mm pupil difference as well which can be physiological. No exposure to pesticides, breathing treatments or eye drops. Unclear cause of right eye blurriness and 2mm pupil difference but most likely an eye issue and should f/u with optho and pcp. Not a stroke. No furhter recs. Please reachout for any questions or concerns. Stroke to sign off. [facility] Medical History (Updated 07/26/24 @ 23:[address] Glenda Nolan MD) History of nephrolithiasis Anxiety and depression Morbid obesity Home Medications ?Medication ?Instructions ?Recorded ?Last Taken ?Type fluoxetine 20 mg capsule 20 mg PO DAILY 03/27/22 07/26/24 History levothyroxine 200 mcg tablet 200 mcg PO DAILY 03/27/22 07/26/24 History lorazepam 0.5 mg tablet 0.5 mg PO QHS 05/04/22 07/25/24 History fluoxetine 40 mg capsule 40 mg PO DAILY 07/26/24 07/26/24 History Allergy/AdvReac Type Severity Reaction Status Date / Time No Known Allergies Allergy Verified 07/27/24 00:08 Family History (Updated 07/26/24 @ 23:[address] Glenda Nolan MD) Mother Heart disease Diabetes Father Diabetes PAF (paroxysmal atrial fibrillation) Brain tumor Skin cancer Surgical History History of cholecystectomy H/O thyroidectomy Social History (Updated 07/26/24 @ 23:[address] Glenda Nolan MD) household members: spouse Smoking Status: Never smoker alcohol intake: never substance use type: does not use Vital Signs Vital Signs Vital Signs: 07/26/24 19:06 07/26/24 20:05 07/26/24 20:45 Temperature 98.7 F Temperature Source Temporal Pulse Rate 70 65 Pulse Strength Respiratory Rate 16 20 H Respiratory Effort Respiratory Depth Respiratory Pattern Blood Pressure 132/104 H 192/96 H Blood Pressure Mean 113 124 Blood Pressure Source Blood Pressure Position Blood Pressure Location Pulse Ox 99 96 Oxygen Delivery Method Room Air Room Air 07/26/24 20:46 07/26/24 21:00 07/26/24 21:00 Temperature Temperature Source Pulse Rate 61 59 L 53 L Pulse Strength Respiratory Rate 14 11 L 10 L Respiratory Effort Respiratory Depth Respiratory Pattern Blood Pressure 147/89 H 147/89 H Blood Pressure Mean 108 107 Blood Pressure Source Blood Pressure Position Blood Pressure Location Pulse Ox 97 100 97 Oxygen Delivery Method 07/26/24 21:15 07/26/24 21:30 07/26/24 21:45 Temperature Temperature Source Pulse Rate 58 L 62 75 Pulse Strength Respiratory Rate 11 L 13 18 Respiratory Effort Respiratory Depth Respiratory Pattern Blood Pressure 133/81 H 141/78 H 155/88 H Blood Pressure Mean 98 97 108 Blood Pressure Source Blood Pressure Position Blood Pressure Location Pulse Ox 97 97 95 Oxygen Delivery Method 07/26/24 21:52 07/26/24 22:00 07/26/24 22:15 Temperature 98.1 F Temperature Source Pulse Rate 57 L 57 L 61 Pulse Strength Respiratory Rate 13 16 18 Respiratory Effort Respiratory Depth Respiratory Pattern Blood Pressure 155/88 H 151/81 H 157/78 H Blood Pressure Mean 110 99 100 Blood Pressure Source Blood Pressure Position Blood Pressure Location Pulse Ox 96 95 98 Oxygen Delivery Method 07/26/24 22:30 07/26/24 22:45 07/26/24 23:00 Temperature Temperature Source Pulse Rate 55 L 58 L 57 L Pulse Strength Respiratory Rate 16 14 13 Respiratory Effort Respiratory Depth Respiratory Pattern Blood Pressure 147/73 H 149/85 H 152/84 H Blood Pressure Mean 95 104 103 Blood Pressure Source Blood Pressure Position Blood Pressure Location Pulse Ox 99 97 Oxygen Delivery Method 07/26/24 23:57 07/27/24 00:00 07/27/24 04:00 Temperature 98.5 F 97.7 F L Temperature Source Oral Oral Pulse Rate 54 L 67 Pulse Strength Respiratory Rate 16 18 Respiratory Effort Normal Non-Labored Respiratory Depth Normal Respiratory Pattern Normal Blood Pressure 155/93 H 174/94 H Blood Pressure Mean 113 120 Blood Pressure Source Monitor Monitor Blood Pressure Position Supine Semi-Fowlers Blood Pressure Location Right Forearm Right Forearm Pulse Ox 98 97 Oxygen Delivery Method Room Air Room Air Room Air 07/27/24 04:00 07/27/24 08:00 07/27/24 08:10 Temperature 97.9 F Temperature Source Temporal Pulse Rate 58 L Pulse Strength Normal (2+) Respiratory Rate 18 Respiratory Effort Normal Non-Labored Respiratory Depth Normal Respiratory Pattern Normal Blood Pressure 140/75 H Blood Pressure Mean 96 Blood Pressure Source Monitor Blood Pressure Position Semi-Fowlers Blood Pressure Location Right Forearm Pulse Ox 94 Oxygen Delivery Method Room Air Room Air 07/27/24 08:17 07/27/24 12:00 Temperature 97.4 F L Temperature Source Temporal Pulse Rate 78 Pulse Strength Respiratory Rate 18 Respiratory Effort Normal Non-Labored Respiratory Depth Normal Respiratory Pattern Normal Blood Pressure 164/99 H Blood Pressure Mean 120 Blood Pressure Source Monitor Blood Pressure Position Semi-Fowlers Blood Pressure Location Left Forearm Pulse Ox 98 Oxygen Delivery Method Room Air Room Air Weight Weight: 155 kg Body Mass Index (BMI) 52.0 NIHSS NIHSS Nursing Documentation NIHSS Nursing Documentation: NIHSS: Ischemic Stroke/TIA Start: 07/26/24 23:49 Text: For PCU Patients: NIH and Neuro Check every 4 Status: Active hours, PRN and with change in RN caregiver. Freq: [id number] Protocol: Activity Type Activity Date Activity User E-sign Co-sign Detail Recorded Client Recorded Date Recorded By Document 07/27/24 12:00 8 [id number] 07/27/24 12:00 [id number] 07/27/24 12:00 NIH Stroke Scale [NIHSS] A score of 0 is normal or asymptomatic . Total possible score is 42. Inpatient: RN or Physician to activate a stroke alert for onset of new stroke symptoms or with NIHSS increase >/= 3 points. Following change in neurological status, NIHSS will be performed per physician order or more frequently PRN. -1a. Level of Consciousness Alert; keenly responsive -1b. LOC Questions Answers BOTH questions correctly. -1c. LOC Commands Performs both tasks correctly . -2. Best Gaze Normal -3. Visual No visual loss -4. Facial Palsy Normal symmetrical movements -5a. Left Arm No drift; arm holds 90 (or 45 ) degrees for full 10 seconds -5b. Right Arm No drift; arm holds 90 (or 45 ) degrees for full 10 seconds -6a. Left Leg No drift; leg holds 30-degree position for full 5 seconds -6b. Right Leg No drift; leg holds 30-degree position for full 5 seconds -7. Limb Ataxia Absent -8. Sensory Normal; no sensory loss -9. Best Language No aphasia; normal -10. Dysarthria Normal -11. Extinction and Inattention No abnormality -Total 0 Query Text:A score of 0 is normal or asymptomatic. Total possible score is 42 . ED: Notify Physician for NIHSS increase by > / = 3 points. Inpatient: RN or Physician to activate a stroke alert for NIHSS increase of > / = 3 points. Coma Scale [Assess] -Eye Opening Spontaneous -Motor Obeys Commands -Verbal Oriented [Total] -Coma Scale Total 15 Physical Exam Narrative Physical Exam: - General: NAD, pleasant, cooperative, well nourished, well developed - Head/Eyes: Atraumatic, normocephalic, clear cornea, normal sclera/conjunctive - Neuro: ? Mental Status: AAOX4 & following simple commands. ? Speech: Clear and fluent with good repetition, comprehension, & naming. No aphasia or dysarthria ? CN II: Visual pa are full to confrontation. ? CN III, IV, : EOMI, no gaze preference, no nystagmus, no ptosis ? CN V: Facial sensation is intact to light touch throughout. ? CN VII: Face is symmetric with normal eye closure and smile. ? CN VII: Hearing is grossly normal to conversational speech. ? CN XI: Head turning, and shoulder shrug are intact. ? Motor: Able to sustain all limbs ? Sensation: Normal to light touch bilaterally. ? Coordination: Normal FTN & HTS. No abn movements seen. Lab / Micro Data 07/27/24 06:00 07/27/24 06:00 Labs: Laboratory Results - last 24 hr 07/26/24 19:14: WBC 13.1 H, RBC 4.83, Hgb 13.5, Hct 40.6, MCV 84.1, MCH 28.0, MCHC 33.3, RDW Std Deviation 42.4, RDW Coeff of Madeline 13.9, Plt Count 464 H, MPV 10.6, Immature Gran % (Auto) 1.000 H, Neut % (Auto) 69.9, Lymph % (Auto) 22.8, [place] % (Auto) 5.3, Eos % (Auto) 0.5, Baso % (Auto) 0.5, Absolute Neuts (auto) 9.2 H, Absolute Lymphs (auto) 2.99, Nucleated RBC % 0, PT 13.9, INR 1.1, APTT 24.6, Sodium 137, Potassium 2.9 L, Chloride 103, Carbon Dioxide 25.0, Anion Gap 9, BUN 8, Creatinine 0.91, Estim Creat Clear Calc 127.31, Est GFR (MDRD) Af Amer 86, Est GFR (MDRD) Non-Af 71, BUN/Creatinine Ratio 8.8 L, Glucose 159 H, Calcium 8.3 L 07/26/24 22:34: Magnesium 2.2 07/27/24 04:24: Urine Opiates Screen NEGATIVE, Urine Methadone Screen NEGATIVE, Ur Barbiturates Screen NEGATIVE, Ur Phencyclidine Scrn NEGATIVE, Ur Amphetamines Screen NEGATIVE, MDMA (Ecstasy) Screen NEGATIVE, U Benzodiazepines Scrn NEGATIVE, Urine Cocaine Screen NEGATIVE, U Cannabinoids Screen POSITIVE H, Ur Drug Screen Comment 07/27/24 06:00: WBC 8.4, RBC 4.20, Hgb 11.4 L, Hct 35.8 L, MCV 85.2, MCH 27.1, MCHC 31.8 L, RDW Std Deviation 42.9, RDW Coeff of Madeline 14.0, Plt Count 352, MPV 10.2, Immature Gran % (Auto) 0.600, Neut % (Auto) 70.7 H, Lymph % (Auto) 21.2, [place] % (Auto) 6.2, Eos % (Auto) 0.8, Baso % (Auto) 0.5, Absolute Neuts (auto) 5.9, Absolute Lymphs (auto) 1.77, Nucleated RBC % 0, Sodium 139, Potassium 3.0 L, Chloride 107, Carbon Dioxide 23.0, Anion Gap 9, BUN 6 L, Creatinine 0.63, Estim Creat Clear Calc 180.51, Est GFR (MDRD) Af Amer 131, Est GFR (MDRD) Non-Af 108, BUN/Creatinine Ratio 9.5 L, Glucose 98, Hemoglobin A1c 5.7 H, Calcium 7.8 L, Total Bilirubin 0.50, AST 30, ALT 29, Alkaline Phosphatase 86, Total Protein 6.5, Albumin 2.7 L, Globulin 3.8, Albumin/Globulin Ratio 0.7 L, Triglycerides 141, Cholesterol 147, LDL Cholesterol 80, VLDL Cholesterol 28, HDL Cholesterol 39 L, TSH 0.830 Imaging Radiology Impression Brain CT 07/26/24 19:14 IMPRESSION: Findings suggesting possible infarct at the pontomesencephalic junction. MRI recommended for further evaluation Electronically Signed: Masood Johnson MD at 20:06 EST , ADDENDUM: 07/26/242016 IMPRESSION: Findings suggesting possible infarct at the pontomesencephalic junction. MRI recommended for further evaluation N.B. : The above Results were Read Back by Masood Johnson MD to Anatoliy Vargas DO, and understanding confirmed on 07/26/2024 20:10:21 (ET). Electronically Signed: Masood Johnson MD at 20:06 EST , Head/Neck CTA 07/26/24 20:11 IMPRESSION: Normal CTA Head and neck with contrast. Electronically Signed: Masood Johnson MD at 21:59 EST , Brain MRI 07/27/24 09:30 IMPRESSION: Negative MRI brain without and with intravenous contrast. Electronically Signed: Alexx Feliz MD at 12:03 EST , Active Medications Active Medications Active Medications: Current Medications Generic Name Dose Route Start Last Admin Trade Name Freq PRN Reason Stop Dose Admin Acetaminophen 650 mg 07/26/24 23:49 Acetaminophen 325 Mg Tablet PO Q4H PRN PRN Fever, pain 1-04/12 Al Hydroxide/Mg Hydroxide 30 ml 07/26/24 23:49 Mag Hydrox/Al Hydrox/Simeth 30 Ml Udc PO Q6H PRN PRN Gastric Burning Albuterol Sulfate 2.5 mg 07/26/24 23:49 Albuterol 2.5 Mg/3 Ml Vial.Neb. INHALATION Q2H PRN PRN Dyspnea, wheezing Aspirin 81 mg 07/27/24 08:00 07/27/24 08:24 Aspirin 81 Mg Tab.Chew PO 81 mg BREAKFAST NIKKI Administration Atorvastatin Calcium 80 mg 07/27/24 22:00 Atorvastatin Calcium 80 Mg Tablet PO QHS [facility] Enoxaparin Sodium 40 mg 07/27/24 10:00 07/27/24 08:24 Enoxaparin 40 Mg/0.4 Ml Syringe SC 40 mg DAILY NIKKI Administration Fluoxetine HCl 40 mg 07/27/24 10:00 07/27/24 08:24 Fluoxetine Hcl 40 Mg Capsule PO 40 mg DAILY NIKKI Administration Fluoxetine HCl 20 mg 07/27/24 10:00 07/27/24 08:24 Fluoxetine 20 Mg Capsule PO 20 mg DAILY NIKKI Administration Guaifenesin 20 ml 07/26/24 23:49 Guaifenesin 10 Ml Udc (200mg/10ml) PO Q4H PRN PRN COUGH Hydralazine HCl 5 mg 07/26/24 23:49 Hydralazine 20 Mg/Ml Vial IV 07/27/24 23:49 Q30M PRN maintain BP parameters with HR <60 Labetalol HCl 10 - 20 mg 07/26/24 23:49 Labetalol 20mg/4ml Syringe IV 07/27/24 23:49 Q10M PRN PRN maintain BP parameters with HR >/=60 Levothyroxine Sodium 200 mcg 07/27/24 06:00 07/27/24 06:01 Levothyroxine 100 Mcg Tablet PO 200 mcg DAILY@0600 NIKKI Administration Lorazepam 0.5 mg 07/27/24 22:00 Lorazepam 0.5 Mg Tablet PO QHS [facility] Lorazepam 0.5 - 1 mg 07/26/24 23:49 07/27/24 09:22 Lorazepam 0.5 Mg Tablet PO 0.5 mg X1 PRN Administration anxiety with MRI Melatonin 3 mg 07/26/24 23:49 Melatonin 3 Mg Tablet PO QHS PRN PRN INSOMNIA Ondansetron HCl 4 mg 07/26/24 23:49 Ondansetron 4 Mg/2 Ml Vial IV Q8H PRN PRN NAUSEA/VOMITING Potassium Chloride 20 meq 07/27/24 17:00 Potassium Chloride Oral Tablet 20 Meq PO BIDCM [facility] Prochlorperazine Edisylate 5 mg 07/26/24 23:49 Prochlorperazine 10 Mg/2 Ml Vial IV Q4H PRN PRN Breakthrough Nausea/Vomiting Senna/Docusate Sodium 2 tablet 07/26/24 23:49 Senna/Docusate Sodium 1 Tablet PO BID PRN PRN Constipation Sodium Chloride 10 - 40 ml 07/27/24 00:48 07/27/24 06:01 0.9% Saline Lock 10 Ml Syringe IV 10 ml UD PRN Administration SALINE FLUSH
--- NOTE | 2024-07-27 13:18 | PCM.DC.SUM ---
Providers Date of Admission: 07/26/24 Date of Discharge: 07/27/24 Primary Care Physician: LUIS Cardoso Consultations 07/26/24 23:49 Consult: Tele-Neurology Routine Consulting Provider: [facility] Reason for Consult: Acute Ischemic Stroke/TIA EMERGENT Consult: No MD Notified: Yes Date Notified: 07/26/24 Time Notified: 22:18 Method of Notification: Answering Service Nursing Unit Staff Notify [facility] of Tele-Neurology Consult: Yes Reason For Visit: VISION CHANGES, CVA Diagnosis Discharge Diagnosis (1) Acute CVA (cerebrovascular accident): Status: Acute Code(s): I63.9 - Cerebral infarction, unspecified Plan Patient is a 43-year-old lady who presented with visual impairment involving the right eye more on the lateral side. CT of the brain obtained demonstrated Findings suggesting possible infarct at the pontomesencephalic junction. Admitted to a monitored bed for subsequent 1. Right visual impairment ? Suspicious for acute CVA. Initial imaging studies with CT demonstrated Findings suggesting possible infarct at the pontomesencephalic junction. Admitted to a monitored bed for subsequent evaluation. Subsequent MRI was however negative for acute CVA. Consult was placed to teleneuro on admission awaiting input. Plan is for patient to follow-up with Dr. Kyle with ophthalmology as outpatient when discharged ? Patient was seen in consultation by teleneurology signed of the case and recommended for patient to follow-up with ophthalmology and primary care physician as outpatient 2. Hypokalemia -Corrected per protocol 3. Elevated blood pressure ? Patient does not have known hypertensive however given the suspicion of acute CVA on admission permissive hypertension protocol was followed ? Prescription was written for amlodipine on discharge 4. Class III obesity with BMI of 52 ? Complicating care weight loss advised 5. Hyperglycemia ? Without known diagnosis of diabetes hemoglobin A1c ordered came back at 5.7 6. Hypothyroidism ? Iatrogenic following thyroidectomy, patient is on levothyroxine home dose continued 7. Depression with anxiety ? Patient is on fluoxetine as well as lorazepam continue 8. DVT prophylaxis ? SC enoxaparin Medications at Discharge Home Medications fluoxetine 20 mg capsule 20 mg PO DAILY 03/27/22 levothyroxine 200 mcg tablet 200 mcg PO DAILY 03/27/22 lorazepam 0.5 mg tablet 0.5 mg PO QHS 05/04/22 fluoxetine 40 mg capsule 40 mg PO DAILY 07/26/24 amlodipine 10 mg tablet 10 mg PO DAILY #90 tabs 07/27/24 potassium chloride 20 mEq tablet,extended release(part/cryst) 20 meq PO BIDCM #60 tabs 07/27/24 Physical Exam Narrative GENERAL: cooperative HEENT: Atraumatic; normocephalic EYES; Anicteric, Normal Conjunctiva NECK; supple, normal thyroid, RESPIRATORY: Diminished to auscultation CARDIOVASCULAR: Regular S1 S2, GI: soft, normoactive bowel sounds, : No Renal angle tenderness; EXTREMITIES: No edema, no clubbing, MUSCULOSKELETAL: no muscle wasting NEURO: Awake; no lateralizing signs. SKIN: No Rash PSYCH; Flat affect Weight / BMI Weight Weight: 155 kg Body Mass Index (BMI) 52.0 ABG / Lab / Microbiology Data 07/27/24 06:00 07/27/24 06:00 Laboratory: Laboratory Results - last 24 hr 07/26/24 19:14: WBC 13.1 H, RBC 4.83, Hgb 13.5, Hct 40.6, MCV 84.1, MCH 28.0, MCHC 33.3, RDW Std Deviation 42.4, RDW Coeff of Madeline 13.9, Plt Count 464 H, MPV 10.6, Immature Gran % (Auto) 1.000 H, Neut % (Auto) 69.9, Lymph % (Auto) 22.8, [place] % (Auto) 5.3, Eos % (Auto) 0.5, Baso % (Auto) 0.5, Absolute Neuts (auto) 9.2 H, Absolute Lymphs (auto) 2.99, Nucleated RBC % 0, PT 13.9, INR 1.1, APTT 24.6, Sodium 137, Potassium 2.9 L, Chloride 103, Carbon Dioxide 25.0, Anion Gap 9, BUN 8, Creatinine 0.91, Estim Creat Clear Calc 127.31, Est GFR (MDRD) Af Amer 86, Est GFR (MDRD) Non-Af 71, BUN/Creatinine Ratio 8.8 L, Glucose 159 H, Calcium 8.3 L 07/26/24 22:34: Magnesium 2.2 07/27/24 04:24: Urine Opiates Screen NEGATIVE, Urine Methadone Screen NEGATIVE, Ur Barbiturates Screen NEGATIVE, Ur Phencyclidine Scrn NEGATIVE, Ur Amphetamines Screen NEGATIVE, MDMA (Ecstasy) Screen NEGATIVE, U Benzodiazepines Scrn NEGATIVE, Urine Cocaine Screen NEGATIVE, U Cannabinoids Screen POSITIVE H, Ur Drug Screen Comment 07/27/24 06:00: WBC 8.4, RBC 4.20, Hgb 11.4 L, Hct 35.8 L, MCV 85.2, MCH 27.1, MCHC 31.8 L, RDW Std Deviation 42.9, RDW Coeff of Madeline 14.0, Plt Count 352, MPV 10.2, Immature Gran % (Auto) 0.600, Neut % (Auto) 70.7 H, Lymph % (Auto) 21.2, [place] % (Auto) 6.2, Eos % (Auto) 0.8, Baso % (Auto) 0.5, Absolute Neuts (auto) 5.9, Absolute Lymphs (auto) 1.77, Nucleated RBC % 0, Sodium 139, Potassium 3.0 L, Chloride 107, Carbon Dioxide 23.0, Anion Gap 9, BUN 6 L, Creatinine 0.63, Estim Creat Clear Calc 180.51, Est GFR (MDRD) Af Amer 131, Est GFR (MDRD) Non-Af 108, BUN/Creatinine Ratio 9.5 L, Glucose 98, Hemoglobin A1c 5.7 H, Calcium 7.8 L, Total Bilirubin 0.50, AST 30, ALT 29, Alkaline Phosphatase 86, Total Protein 6.5, Albumin 2.7 L, Globulin 3.8, Albumin/Globulin Ratio 0.7 L, Triglycerides 141, Cholesterol 147, LDL Cholesterol 80, VLDL Cholesterol 28, HDL Cholesterol 39 L, TSH 0.830 Radiography Diagnostic Testing: Radiology Impression Brain CT 07/26/24 19:14 IMPRESSION: Findings suggesting possible infarct at the pontomesencephalic junction. MRI recommended for further evaluation Electronically Signed: Masood Johnson MD at 20:06 EST Reading Location ID and State: [facility] / [place] Tel , Service support , ADDENDUM: 07/26/242016 IMPRESSION: Findings suggesting possible infarct at the pontomesencephalic junction. MRI recommended for further evaluation N.B. : The above Results were Read Back by Masood Johnson MD to Anatoliy Vargas DO, and understanding confirmed on 07/26/2024 20:10:21 (ET). Electronically Signed: Masood Johnson MD at 20:06 EST Reading Location ID and State: [facility] / [place] Tel [phone], Service support , Head/Neck CTA 07/26/24 20:11 IMPRESSION: Normal CTA Head and neck with contrast. Electronically Signed: Masood Johnson MD at 21:59 EST Reading Location ID and State: [facility] / [place] Tel [phone], Service support , Echocardiogram 07/26/24 23:49 Interpretation Summary The estimated ejection fraction is 65 %. No evidence for diastolic dysfunction. Trivial mitral valve insufficiency. Ordering Physician: Glenda Nolan Performed By: Jacques Boyce RCS Brain MRI 07/27/24 09:30 IMPRESSION: Negative MRI brain without and with intravenous contrast. Electronically Signed: Alexx Feliz MD at 12:03 EST , D/C Instructions Discharge Diet: No restrictions Discharge Activity: Return to Normal Activity Call your doctor if you observe: Fever of 101 or Higher, Shortness of breath, Fainting spells and Chest pain DC O2, CPAP, BIPAP Needs Home O2 Discharge instructions: No Meaningful Use Info Meaningful Use Meaningful Use Diagnoses (Choose all that apply): None applicable Ischemic Stroke Statin Dosing Therapy Reference: STATIN DOSE THERAPY REFERENCE: * Patients > 75 years receive moderate or high dose statin therapy. * Patients 75 years or YOUNGER should receive HIGH intensity statin dose unless contraindicated. You will be required to document reason for non-treatment if statin daily dose does not meet guidelines. HIGH DOSE STATIN THERAPY DAILY Atorvastatin > than or = to 40 mg Rosuvastatin > than or = to 20 mg Amlodipine + Atorvastatin > than or = to 2.5/40 mg Ezetimibe + Simvastatin 10/80 mg Simvastatin 80mg Discharge Plan Admission Admit Date/Time: 07/26/24 22:17 Attending Provider: Clark Mckeon Primary Care Provider: Bety Betancourt NP Consulting Providers: Glenda Nolan; Tra Villanueva; Graciela Landin; Whitney You; Vesna Gates; Priyanka Doss; Rex Sanders; Maribell Norris; Geovany Mcfarland; Dakota Ruth; Taran Burdick; Swati Baca; James Adan; Krista Fernandez; Swapna Moran; Mónica Burris; Jeff Thurston; Natty Cantrell; Rogelio Grey; Miriam Stewart; Viky Gardner Discharge Orders/Prescriptions Prescriptions: New amlodipine 10 mg tablet 10 mg PO DAILY Qty: 90 0RF potassium chloride 20 mEq Tablet,Er Particles/Crystals 20 meq PO BIDCM Qty: 60 0RF Continued levothyroxine 200 mcg tablet 200 mcg PO DAILY Patient Comments: TAKE 1 TABLET BY MOUTH ONCE DAILY 5 DAYS A WEEK AND 1.5 ( ONE AND ONE-HALF) TABLETS 2 DAYS A WEEK. fluoxetine 20 mg capsule 20 mg PO DAILY lorazepam 0.5 mg tablet 0.5 mg PO QHS fluoxetine 40 mg capsule 40 mg PO DAILY Referrals / Follow Up: David Kyle MD [Med Staff - Active Staff] - Within 1 Week Bety Betancourt NP, [employer] [Primary Care Provider] - Within 1 Week Disposition Disposition (needs filled in before D/C Order can be placed): Home, Self Care Charges/Coding Visit Charges Inpatient E&M: 85188 Disch Hosp >30min
[2024-07-27 13:38] VITALS: BP 164/99; PULSE 78; RESP 18; TEMP 36.3; O2SAT 98
--- NOTE | 2024-07-27 14:23 | CASEMGMT ---
Patient has order for discharge. RN CM in to discuss needs at discharge. Patient denies needs or help at discharge. Patient had no further questions or concerns.
--- NOTE | 2024-07-27 14:49 | CHAPLAIN ---
Type of Pastoral Visit _x__ Initial Visit ___ Follow-up Visit ___ On-call Visit ___ General Patient Visit ___ Spiritual Assessment ___ Family Conference ___ Bereavement ___ Rapid Response ___ Code Blue ___ Other (describe below) Pastoral Care Referral From _x__ Patient ___ Family ___ Nurse ___ Physician ___ Lead Nuclear Medicine Technologist ___ Butcher Meat ___ Other (describe below) Sacrament/Intervention _x__ Active listening ___ Anointing ___ Confucianist ___ Bereavement ___ Communion ___ Shae exploration ___ ___ Life review ___ Prayer ___ Reconciliation ___ Sacrament of Sick _x__ Supportive presence ___ Wedding ___ Other (describe below) Pastoral Comments patient reports that her issue is resolving and that tests have been completed; spouse is with patient; pt says that she has no further concerns and does not need anything else at this time
[2024-08-02 15:07] LABS: Anti-Cardiolipin Ab, IgG, Qn < 9 GPL U/mL (0-14); Anti-Cardiolipin Ab, IgM, Qn < 9 MPL U/mL (0-12); Anti-Thrombin 3 AG, Immunol 81 % (72-124); Antithrombin 3 Function 106 % (75-135); Beta-2-Glycoprotein I IgA <9 (0-25); Beta-2-Glycoprotein I IgG <9 (0-20); Beta-2-Glycoprotein I IgM <9 (0-32); Protein C Antigen 107 % (60-150); Protein C, Functional 125 % (73-180)
== END 2024-07-27 13:22 | disposition home or self-care (01) ==
LOC: ED 21:32 → PCU 22:53
PROVIDERS: Admitting Provider Family Medicine; Emergency Provider Emergency Medicine; PCP Nurse Practitioner Family; Visit Provider Internal Medicine
DX: H53.8 Other visual disturbances (principal); E66.813 Obesity, class 3; Z68.43 Body mass index [BMI] 50.0-59.9, adult; H57.04 Mydriasis; F41.8 Other specified anxiety disorders; Z79.890 Hormone replacement therapy; E89.0 Postprocedural hypothyroidism; E87.6 Hypokalemia; Z79.899 Other long term (current) drug therapy; R73.9 Hyperglycemia, unspecified; R03.0 Elevated blood-pressure reading, without diagnosis of hypertension; R00.1 Bradycardia, unspecified; I08.1 Rheumatic disorders of both mitral and tricuspid valves
CPT/HCPCS: 36415; 70450; 70496; 70498; 70553; 80048; 80053; 80061; 80307; 81240; 81241; 83036; 83735; 84443; 85025; 85300; 85301; 85302; 85303; 85610; 85730; 86146; 86147; 92526; 93005; 93306; 96360; 96361; 96372; 99221; 99285; A9575; Q9957; Q9967; A4216; C8929; G0378

== ENCOUNTER 2025-04-03 14:44 | Emergency (ER) | payer OTHER, SELFPAY ==
[2025-04-03 14:45] VITALS: BP 202/108; PULSE 102; RESP 16; TEMP 36.6; O2SAT 99; BMI 53.6
--- NOTE | 2025-04-03 15:24 | EX.ED.VIS.PS ---
HPI HPI - Psych History of Present Illness Chief Complaint: Suicidal Informant: patient Narrative Narrative: Patient is a 44-year-old female presenting with suicidal ideation and nausea. - Reports feeling overwhelmed by multiple stressors, including work demands, a custody arriaga for her 's children, and the recent of her aunt. - Experiences running away fantasies and fleeting thoughts of self-harm, including driving her car off a bridge; no specific plan formulated. - Advised by her father, a therapist, to seek medical attention. - Reports frequent episodes of severe nausea, sometimes relieved by sneezing; denies hematochezia or melena. - Denies chest pain, dyspnea, or sudden vision changes, though notes difficulty reading recently. - Had a cholecystectomy earlier this year and was hospitalized for a suspected stroke, which was ruled out. - Denies headaches associated with nausea but had one earlier this week; does not typically experience headaches. - Currently taking Ativan for anxiety. [facility] Medical History (Updated 04/03/25 @ 17:[address] Arya Turner MD) History of nephrolithiasis Anxiety and depression Morbid obesity Home Medications ?Medication ?Instructions ?Recorded ?Last Taken ?Type fluoxetine 20 mg capsule 20 mg PO DAILY 03/27/22 07/26/24 History levothyroxine 200 mcg tablet 200 mcg PO DAILY 03/27/22 07/26/24 History lorazepam 0.5 mg tablet 1 mg PO BID PRN PRN anxiety 05/04/22 07/25/24 History fluoxetine 40 mg capsule 40 mg PO DAILY 07/26/24 07/26/24 History amlodipine 10 mg tablet 10 mg PO DAILY #90 tabs 07/27/24 Unknown Rx bupropion HCl 150 mg 24 hr tablet, 150 mg PO DAILY 04/03/25 Unknown History extended release (Wellbutrin XL) Allergy/AdvReac Type Severity Reaction Status Date / Time No Known Allergies Allergy Verified 04/03/25 14:44 Family History (Updated 07/26/24 @ 23:[address] Glenda Nolan MD) Mother Heart disease Diabetes Father Diabetes PAF (paroxysmal atrial fibrillation) Brain tumor Skin cancer Surgical History History of cholecystectomy H/O thyroidectomy Social History (Updated 07/26/24 @ 23:[address] Glenda Nolan MD) household members: spouse Smoking Status: Never smoker alcohol intake: never substance use type: does not use ROS ROS ED Constitutional Constitutional ED: Denies chills or fever(s) Eyes Eyes: Denies change in vision or diplopia ENT ENT ED: Denies rhinorrhea or sore throat Cardiovascular Cardiovascular: Denies chest pain or palpitations Respiratory/Chest Respiratory/Chest: Denies cough or dyspnea Gastrointestinal Gastrointestinal: Reports nausea; Denies abdominal pain, diarrhea or vomiting Genitourinary Genitourinary ED: Denies dysuria or hematuria Musculoskeletal Musculoskeletal: Denies back pain or neck pain Integumentary Denies abscess or rash Neurologic Neurologic: Denies headache(s), paresthesias or weakness Psychiatric Psychiatric: Reports depression, suicidal ideation and suicidal thoughts; Denies homicidal ideation EXAM Physical Exam Const Vital Signs: 04/03/25 14:45 04/03/25 16:01 04/03/25 17:44 Temperature 97.9 F 98 F Temperature Source Temporal Oral Pulse Rate 102 H 64 Respiratory Rate 16 14 12 Blood Pressure 202/108 H 139/85 H Blood Pressure Mean 139 103 Pulse Ox 99 100 Oxygen Delivery Method Room Air Room Air 04/03/25 20:50 Temperature 98.1 F Temperature Source Pulse Rate 68 Respiratory Rate 14 Blood Pressure 161/90 H Blood Pressure Mean 113 Pulse Ox 100 Oxygen Delivery Method Positive well nourished, well developed and obese General Appearance ED: well developed and NAD Nutritional Appearance: obese HEENT Reports moist mucous membranes normocephalic and atraumatic Eyes PERRL and EOMs intact bilaterally General Eye ED: Negative for scleral icterus Neck no lymphadenopathy and supple Resp normal respiratory effort and clear to auscultation bilaterally Cardio no murmurs Rate: regular rate Rhythm: regular rhythm GI non-tender and non-distended Auscultation: normoactive bowel sounds Palpation: soft Back/Spine no CVA tenderness and normal ROM Extremity normal to inspection General Extremety ED: Negative for edema General Extremity: Negative for edema Neuro oriented x3, CN's II-XII intact bilaterally, no sensory deficits noted and gait normal Sensorium / Orientation: alert Motor Exam: strength 5/5 throughout Psych mental status grossly normal, thought process normal, cooperative, activity/motor behavior normal and denies homicidal ideation Mood & Affect: depressed Thought Content: suicidality Skin Lesions: no lesions Rashes: no rashes MDM MDM MDM Narrative Medical decision making narrative: Assessment: The patient is a 44-year-old female presenting for suicidal ideation and overwhelming situational stress after multiple recent psychosocial stressors. She reports fleeting thoughts of driving her car off a bridge but denies a formulated plan. Surgical history notable for cholecystectomy earlier this year; she also takes prescribed Ativan for anxiety. Labs and toxicology are unremarkable except for benzodiazepine consistent with prescription use. Blood pressure around 200/100 is presumed secondary to anxiety. Medically cleared; primary impression is acute stress reaction with active suicidal ideation requiring psychiatric placement. Plan: - Patient medically cleared in ED. - Social work/mental health completed evaluation; patient requests inpatient psychiatric placement. - Arranging psychiatric bed placement. - Continue to monitor blood pressure while awaiting transfer. - Offered antiemetic for nausea; patient declined. Diagnostics: - Labs and toxicology screen: unremarkable; benzodiazepine positive, consistent with prescription use. Consultations: - Social work/mental health ? recommends psychiatric admission; patient agreeable. Diagnoses: Suicidal ideation; Stress reaction, acute Lab Data Attestation: I reviewed the patient's lab results. Labs: Laboratory Results - last 24 hr 04/03/25 04/03/25 15:30 17:39 WBC 9.2 RBC 3.91 L Hgb 10.9 L Hct 32.9 L MCV 84.1 MCH 27.9 MCHC 33.1 RDW Std Deviation 44.3 H RDW Coeff of Madeline 14.6 Plt Count 323 MPV 9.9 Immature Gran % (Auto) 0.900 Neut % (Auto) 77.2 H Lymph % (Auto) 13.2 L Jackson % (Auto) 6.1 Eos % (Auto) 2.2 Baso % (Auto) 0.4 Absolute Neuts (auto) 7.1 Absolute Lymphs (auto) 1.21 Nucleated RBC % 0 Sodium 143 Potassium 3.6 Chloride 108 Carbon Dioxide 23.1 Anion Gap 12 BUN 10 Creatinine 0.84 Estim Creat Clear Calc 141.06 Est GFR (MDRD) Non-Af 87 BUN/Creatinine Ratio 11.3 Glucose 143 H Calcium 8.1 Serum , Qual NEGATIVE Urine Opiates Screen NEGATIVE U Buprenorphine Qual NEGATIVE Ur Oxycodone Screen NEGATIVE Urine Methadone Screen NEGATIVE Urine Fentanyl Screen NEGATIVE Ur Barbiturates Screen NEGATIVE Ur Phencyclidine Scrn NEGATIVE Ur Amphetamines Screen NEGATIVE U Benzodiazepines Scrn PRESUMPTIVE POSITIVE Urine Cocaine Screen NEGATIVE U Cannabinoids Screen PRESUMPTIVE POSITIVE Ethyl Alcohol < 10.1 Management Discussion w/another healthcare provider: warehouse worker/Case management Discharge Plan Triage Chief Complaint: Suicidal ED Provider: Arya Turner Dx/Rx/DC Orders Clinical Impression: Suicidal ideation, Reaction to severe stress Prescriptions: No Action levothyroxine 200 mcg tablet 200 mcg PO DAILY Patient Comments: TAKE 1 TABLET BY MOUTH ONCE DAILY 5 DAYS A WEEK AND 1.5 ( ONE AND ONE-HALF) TABLETS 2 DAYS A WEEK. fluoxetine 20 mg capsule 20 mg PO DAILY lorazepam 0.5 mg tablet 1 mg PO BID PRN PRN (Reason: anxiety) fluoxetine 40 mg capsule 40 mg PO DAILY amlodipine 10 mg tablet 10 mg PO DAILY Qty: 90 0RF bupropion HCl [Wellbutrin XL] 150 mg tablet extended release 24 hr 150 mg PO DAILY Primary Care Provider: Bety Betancourt NP Referrals: Bety Betancourt NP, IGNITION MECHANIC-C [Primary Care Provider, Palliative Medicine] Print Language: Icelandic Disposition Disposition: Psychiatric Hospital or Unit Discharge Location: [place] Discharge Date/Time: 04/03/25 21:35
[2025-04-03 16:01] VITALS: RESP 14
[2025-04-03 16:03] LABS: Hematocrit 32.9 % (37-47); Hemoglobin 10.9 g/dL (12.0-15.0); Immature Granulocytes Count 0.080 X10^3/uL (0.0-0.0); Mean Corp Hgb Conc 33.1 g/dL (32-36); Mean Corpuscular Volume 84.1 fL (81-99); Mean Platelet Vol. 9.9 fl (6.2-12.0); NRBC Flagged by Analyzer 0 % (0-5); Platelet Count 323 K/mm3 (150-450); RBC Distribution Width CV 14.6 % (11.6-14.6); RBC Distribution Width SD 44.3 fl (35.1-43.9); Red Blood Count 3.91 M/mm3 (4.2-5.4); White Blood Count 9.2 K/mm3 (4.4-11.0)
[2025-04-03 16:30] LABS: Alcohol, Blood (Medical)-Serum < 10.1 mg/dL (<=10.0); Anion Gap 12 (5-15); BUN 10 mg/dL (4-19); BUN/Creat Ratio 11.3 RATIO (10-20); Calcium,Total 8.1 mg/dL (7.6-11.0); Carbon Dioxide 23.1 mmol/L (21.0-32.0); Chloride 108 mmol/L (98-108); Estimated Creatinine Clearance 141.06 ml/min (50-250); Glucose 143 mg/dL (70-99); Potassium 3.6 mmol/L (3.3-5.1)
[2025-04-03 16:39] LABS: Internal QC Validated? YES +Cl - CLEAR BKGD; Pregnancy, Serum, hCG Quali. NEGATIVE Negative; Record Kit Lot#, Serum Preg. 980607
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
[2025-04-03 17:44] VITALS: BP 139/85; PULSE 64; RESP 12; TEMP 36.6; O2SAT 100
[2025-04-03 19:10] LABS: Barbiturate Urine NEGATIVE (< 200 ng/mL); Benzodiazepine Urine PRESUMPTIVE POSITIVE (< 200 ng/mL); PCP Urine NEGATIVE (< 25 ng/mL); THC Urine PRESUMPTIVE POSITIVE (< 50 ng/mL)
--- NOTE | 2025-04-03 19:10 | CM.ED ---
Social Work [facility] contacted and confirmed they had open bed. Referral sent. [facility] accepted patient. Admitting physician is Dr. Jenkins. Patient will be going to [facility]. [id number] [phone]. [facility] slip faxed. Both patient and patients aware of accepting facility and transportation time. No further needs at this time. Dorene Navarro, PRINTER SLOTTER FEEDER, READING INTERVENTION TEACHER
--- NOTE | 2025-04-03 20:42 | ED.RN ---
ATTEMPTED TO CALL REPORT WITH NO ANSWER AND A FULL VOICEMAIL BOX.
[2025-04-03 20:50] VITALS: BP 161/90; PULSE 68; RESP 14; TEMP 36.7; O2SAT 100
== END 2025-04-03 21:35 ==
PROVIDERS: Emergency Provider Emergency Medicine; PCP Nurse Practitioner Family; Visit Provider Emergency Medicine
DX: R45.851 Suicidal ideations (principal); F41.9 Anxiety disorder, unspecified; R11.0 Nausea; F43.0 Acute stress reaction; E66.9 Obesity, unspecified; F32.A Depression, unspecified; Z90.49 Acquired absence of other specified parts of digestive tract
CPT/HCPCS: 36415; 80048; 80307; 82077; 84703; 85025; 99285